=== PATIENT | female | born 2000 | race Caucasian/White ===

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

== ENCOUNTER 2020-01-19 02:58 | Emergency (ER) | payer OTHER, SELFPAY ==
--- NOTE | ~2020-01-19 | CT_ITS ---
EXAMINATION: CT abdomen pelvis wo con DATE: 01/19/2020 04:08 INDICATION: Flank pain TECHNIQUE: Computed tomography (CT) of the abdomen and pelvis was performed without intravenous contr ast. The dose-length product was 252.41 mGy-cm. Automated exposure control and iterative reconstructi on technique were employed. COMPARISON: CT dated 03/21/2019 FINDINGS: Lung bases unremarkable. No significant pleural or pericardial effusion. Liver, spleen, pancreas, adrenal glands are unremarkable. There are small nonobstructing bilateral re nal stones measuring 2 mm or less. No definite ureteral stone or hydronephrosis. No lymphadenopathy. Gallbladder is present. No abnormal pelvic masses or fluid collections. Trace free fluid in the pelvi s, likely physiologic. Nonobstructive bowel gas pattern. No lymphadenopathy. IMPRESSION: 1. Nonobstructing bilateral nephrolithiasis. Reviewed, dictated and finalized at location A.
[2020-01-19 03:02] VITALS: BP 116/71; PULSE 102; RESP 18; TEMP 36.4; O2SAT 100
--- NOTE | 2020-01-19 03:37 | ED.ABDPAIN ---
HPI - Abdominal Pain General Chief Complaint: Urogenital-Female Stated Complaint: flank pain Time Seen by Provider: 01/19/20 03:01 History of Present Illness HPI narrative: Left low back/flank pain for about 2 days. Moderate intesity. She has had similar pain in the past with multiple kidney stone. She has had associated nausea. No dysuria, hematuria, fever. Related Data Allergies Allergy/AdvReac Type Severity Reaction Status Date / Time No Known Allergies Allergy Unverified 01/28/19 21:41 Review of Systems Review of Systems: All systems reviewed & are unremarkable except as noted in HPI and below PMFSH Past Medical History Medical History Ovarian cyst Social History Social History Smoking status: Never smoker Gender identity (if verbalized by the patient): Female Exam Const: General: healthy appearing, no acute distress and alert Orientation/consciousness: patient oriented x3 HENMT: Head: normal to inspection Neck: Neck: normal visual inspection and no lymphadenopathy Chest: Chest palpation & inspection: no tenderness Resp: Effort & Inspection: normal respiratory effort Auscultation: clear to auscultation bilaterally, no rales, no rhonchi and no wheezes Cardio: Jugular venous distension: no JVD Rate: regular rate Rhythm: regular rhythm Heart sounds: no murmurs GI: Inspection: non-distended GI Palp: Yes Soft to palpation and No Tenderness to palpation present (GI) Skin: General skin exam: normal color Neuro: General: patient oriented x3 and moves all extremities Speech: normal speech Extrem: General: no edema Psych: Appearance: well kempt Affect: normal affect Course Vital Signs Vital signs: Vital Signs Temperature 36.4 C L 01/19/20 03:02 Pulse Rate 102 H 01/19/20 03:02 Respiratory Rate 18 01/19/20 03:02 Blood Pressure 116/71 01/19/20 03:02 Pulse Oximetry 100 01/19/20 03:02 Temperature 36.7 C 01/19/20 05:43 Pulse Rate 85 01/19/20 05:43 Respiratory Rate 16 01/19/20 05:43 Blood Pressure 114/65 01/19/20 05:43 Pulse Oximetry 100 09/12/20 05:43 MDM - Abdominal Pain MDM Narrative Medical decision making narrative: No obstructing stone. UA concerning for possible infection. Medical Records Attestation: I reviewed the patient's medical records. Lab Data Attestation: I reviewed the patient's lab results. Result diagrams: 01/19/20 03:54 01/19/20 03:54 Labs: Lab Results 01/19/20 01/19/20 01/19/20 Range/Units 03:54 03:54 03:54 WBC 4.8 (4.5-10.0) K/mm3 RBC 4.23 (4.2-5.4) M/mm3 Hgb 13.4 (12.0-15.0) g/dL Hct 39.3 (37.0-47.0) % MCV 92.9 (80-100) fl MCH 31.7 (26-34) pg MCHC 34.1 (32-36) g/dl RDW 11.9 (11.5-14.5) % Plt Count 208 (150-375) k/mm3 MPV 11.4 H (7.4-10.4) fl Immature Gran % (Auto) 0.2 (0-0.5) % Neut % (Auto) 37.4 L (45.5-73.1) % Lymph % (Auto) 49.9 H (18.3-44.2) % [place] % (Auto) 10.4 H (2.6-8.5) % Eos % (Auto) 1.5 (0-4.4) % Baso % (Auto) 0.6 (0.2-1.2) % Lymph # (Auto) 2.39 (0.9-3.2) K/mm3 [place] # (Auto) 0.5 (0.1-0.6) K/mm3 Eos # (Auto) 0.1 (0-0.3) K/mm3 Baso # (Auto) 0.0 (0.0-0.1) K/mm3 Abs Immat Gran (auto) 0.01 (0.00-0.031) K/mm3 Absolute Neuts (auto) 1.8 (1.3-6.7) K/mm3 Absolute Nucleated RBC 0.0 (0.0-0.012) K/mm3 Nucleated RBC % 0.0 (0.0-0.2) % Sodium 138 (134-143) mmol/L Potassium 3.8 (3.4-5.0) mmol/L Chloride 104 (98-107) mmol/L Carbon Dioxide 25 (22-30) mmol/L Anion Gap 9 (8-16) mmol/L BUN 10 (8-21) mg/dL Creatinine 0.60 L (0.7-1.0) mg/dL Estim Creat Clear Calc Not Reportable Estimated GFR > 60 (59 - ) Glucose 107 H (65-105) mg/dL Calcium 9.8 (8.9-10.7) mg/dL Urine Color Yellow (Yellow) Urine Appearance Cloudy
[2020-01-19 04:09] LABS: Basophils Percent Auto 0.6 % (0.2-1.2); Eosinophils Absolute Auto 0.1 K/mm3 (0-0.3); Eosinophils Percent Auto 1.5 % (0-4.4); Hematocrit 39.3 % (37.0-47.0); Hemoglobin 13.4 g/dL (12.0-15.0); Immature Granulocyte Absolute 0.01 K/mm3 (0.00-0.031); Immature Granulocyte Percent A 0.2 % (0-0.5); Lymphocytes Absolute Auto 2.39 K/mm3 (0.9-3.2); Lymphocytes Percent Auto 49.9 % (18.3-44.2); Mean Corpuscular HGB Conc 34.1 g/dl (32-36); Mean Corpuscular Hemoglobin 31.7 pg (26-34); Mean Corpuscular Volume 92.9 fl (80-100); Mean Platelet Volume 11.4 fl (7.4-10.4); Monocytes Absolute Auto 0.5 K/mm3 (0.1-0.6); Monocytes Percent Auto 10.4 % (2.6-8.5); Neutrophils Absolute Auto 1.8 K/mm3 (1.3-6.7); Neutrophils Percent Auto 37.4 % (45.5-73.1); Platelet Count Result 208 k/mm3 (150-375); Red Blood Count 4.23 M/mm3 (4.2-5.4); Red Cell Distribution Width 11.9 % (11.5-14.5); White Blood Count 4.8 K/mm3 (4.5-10.0)
[2020-01-19 04:22] LABS: Add Urine Microscopic? YES; Appearance Urine Cloudy (Clear); Bacteria Urine Trace /hpf; Bilirubin Urine Negative (Negative); Blood Urine 1+ (Negative); Color Urine Yellow (Yellow); Glucose Urine UA Negative (Negative); Ketones Urine Negative (Negative); Leukocyte Esterase Ur 3+ LEU/UL (Negative); Mucus Urine Few /lpf; Nitrate Urine Negative (Negative); Protein Urine Negative (Negative); Specific Grav Ur 1.017 (1.001-1.035); Squamous Epithelial Cell Urine Many /hpf (Few); Urobilinogen Urine Negative mg/dL (<2.0); WBC Urine 51-75 /hpf
[2020-01-19] MEDS: SODIUM CHLORIDE 0.9% IV 1,000 ML 999 ML IV CONT (04:25)
[2020-01-19] MEDS: TAMSULOSIN HCL 0.4 MG CAPSULE PO (04:25)
[2020-01-19] MEDS: KETOROLAC 30 MG/ML VIAL (*BKC) IV PUSH (04:25)
[2020-01-19 04:50] LABS: Anion Gap 9 mmol/L (8-16); Blood Urea Nitrogen 10 mg/dL (8-21); Calcium 9.8 mg/dL (8.9-10.7); Carbon Dioxide 25 mmol/L (22-30); Chloride 104 mmol/L (98-107); Estimated Glomerular Filt Rate > 60; Glucose 107 mg/dL (65-105); Potassium 3.8 mmol/L (3.4-5.0); Sodium 138 mmol/L (134-143)
[2020-01-19 05:05] VITALS: BP 118/64; PULSE 89; RESP 16; O2SAT 100
[2020-01-19] MEDS: NITROFURANTOIN MONOHYD MACROCR 100 MG CAP PO (05:29)
[2020-01-19] MEDS: CYCLOBENZAPRINE HCL 10 MG TABLET PO (05:29)
[2020-01-19 05:43] VITALS: BP 114/65; PULSE 85; RESP 16; TEMP 36.7; O2SAT 100
== END 2020-01-19 05:44 | disposition home or self-care (01) ==
PROVIDERS: Emergency Provider Emergency Medicine
DX: N39.0 Urinary tract infection, site not specified (principal)
CPT/HCPCS: 36415; 74176; 80048; 81001; 81025; 85025; 87077; 87086; 87088; 96361; 96374; 99284; A9270; J1885; J7030

== ENCOUNTER 2020-06-17 19:46 | Emergency (ER) | payer OTHER, SELFPAY ==
--- NOTE | ~2020-06-17 | XR_ITS ---
EXAMINATION: XR hand LT min 3V DATE: 06/17/2020 20:06 INDICATION: Pain and swelling at the left second metacarpal post injury TECHNIQUE: Posteroanterior, oblique and lateral views of the left hand were obtained. COMPARISON: None. FINDINGS: Alignment is normal. No fracture. Joint spaces are normal. Soft tissues are unremarkable. IMPRESSION: 1. Negative left hand radiographs. Reviewed, dictated and finalized at location A. RER
[2020-06-17 19:48] VITALS: BP 135/63; PULSE 100; RESP 20; TEMP 36; O2SAT 100
--- NOTE | 2020-06-17 20:52 | ED.GENADULT ---
HPI - General Adult General Chief complaint: Extremity Injury, Upper Stated complaint: Hit left hand on door knob Time Seen by Provider: 06/17/20 19:56 Source: patient Mode of arrival: ambulatory Limitations: no limitations History of Present Illness HPI narrative: Patient presents for evaluation of her right hand after hitting it on the doorknob while playing with her dog prior to arrival. Patient reports pain to the dorsal aspect of the hand that shoots to the wrist. Patient denies loss of strength. Patient denies any other injuries. Related Data Home Medications Medication Instructions Recorded Confirmed buspirone mg 06/17/20 pantoprazole PO 06/17/20 sertraline mg 06/17/20 Allergies Allergy/AdvReac Type Severity Reaction Status Date / Time No Known Allergies Allergy Verified 06/17/20 19:52 Review of Systems Review of Systems: Narrative: CONSTITUTIONAL: Denies fever, chills, or sweats. EYES: Denies visual changes, redness, or discharge. ENT: Denies rhinorrhea, congestion, sore throat, or otalgia. CARDIOVASCULAR: Denies chest pain, palpitations, or edema. RESPIRATORY: Denies cough or dyspnea. GASTROINTESTINAL: Denies abdominal pain, nausea, vomiting, or diarrhea. GENITOURINARY: Denies dysuria or hematuria. SKIN: Denies rash or itching. MUSCULOSKELETAL: Reports left hand pain denies back pain, joint pain, or myalgia. NEUROLOGIC: Denies headache, numbness, dizziness, or weakness. PSYCHIATRIC: Denies anxiety or depression. PMFSH Past Medical History Medical History (Updated 06/17/20 @ 20:40 by Alex Chowdhury PA-C) Ovarian cyst Social History Social History Smoking status: Never smoker Gender identity (if verbalized by the patient): Female Exam Narrative: Exam Narrative: GENERAL: Well-appearing, well-nourished, and in no acute distress. HEAD: Normocephalic, atraumatic. EYES: PERRLA and EOMI. NECK: Supple. No adenopathy or masses. No carotid bruits or JVD CHEST: No respiratory distress. No audible wheezing EXTREMITIES: See left hand. Normal range of motion. Sensation intact. No deformities. SKIN: Abrasion to the dorsal aspect of left hand. Cap refill intact. Warm, dry, no rash. NEURO: No focal deficits. Alert and oriented x3. PSYCH: Normal mood and affect. Course Vital Signs Vital signs: Vital Signs Temperature 96.8 F L 06/17/20 19:48 Pulse Rate 100 06/17/20 19:48 Respiratory Rate 06/17/20 19:48 Blood Pressure 135/63 06/17/20 19:48 Pulse Oximetry 100 06/17/20 19:48 Temperature 96.8 F L 06/17/20 19:48 Pulse Rate 100 06/17/20 19:48 Respiratory Rate 06/17/20 19:48 Blood Pressure 135/63 06/17/20 19:48 Pulse Oximetry 100 06/17/20 19:48 Medical Decision Making Vital Signs Vital Signs: Vital Signs Temperature 96.8 F L 06/17/20 19:48 Pulse Rate 100 06/17/20 19:48 Respiratory Rate 06/17/20 19:48 Blood Pressure 135/63 06/17/20 19:48 Pulse Oximetry 100 06/17/20 19:48 Temperature 96.8 F L 06/17/20 19:48 Pulse Rate 100 06/17/20 19:48 Respiratory Rate 06/17/20 19:48 Blood Pressure 135/63 06/17/20 19:48 Pulse Oximetry 100 06/17/20 19:48 Imaging Data Radiologist's impression: ITS Impressions Hand X-Ray 06/17/20 20:16 IMPRESSION: 1. Negative left hand radiographs. Discharge Plan Discharge Clinical Impression: Contusion of hand Qualifiers: Encounter type: initial encounter Laterality: left Qualified Code(s): S60.222A - Contusion of left hand, initial encounter Patient Disposition: Home, Self-Care Condition: Stable Instructions: Antibiotic Form, Contusion in Adults (ED) Additional Instructions: Rest, elevate above heart level. Wear CEE wrap for support and compression. Use crutches to assist with ambulation and avoid weight bearing. Apply cool compress to area of discomfort to decrease swelling. Follow up with PC
== END 2020-06-17 21:13 | disposition home or self-care (01) ==
PROVIDERS: Emergency Provider Emergency Medicine
DX: S60.222A Contusion of left hand, initial encounter (principal); W22.8XXA Striking against or struck by other objects, initial encounter
CPT/HCPCS: 73130; 99283

== ENCOUNTER 2020-08-26 00:20 | Emergency (ER) | payer OTHER, SELFPAY ==
--- NOTE | ~2020-08-26 | CT_ITS ---
EXAMINATION: CT abdomen pelvis wo con DATE: 08/26/2020 03:08 INDICATION: Right flank pain TECHNIQUE: Computed tomography (CT) of the abdomen and pelvis was performed without intravenous contr ast. Automated exposure control and iterative reconstruction technique were employed. Exam dose: 399 .28 mGy-cm total exam DLP. COMPARISON: 01/19/2020 CT abdomen pelvis FINDINGS: The lung bases are clear. Normal heart size. No pericardial or pleural effusion. The liver, gallbladder, spleen, pancreas, and adrenal glands are unremarkable. No bile duct or pancre atic duct dilatation. There is a punctate nonobstructing left renal calculus. There are at least 7 scattered punctate nonob structing right renal calculi. No ureteral or urinary bladder calculus is detected. No hydroureteronephrosis. Normal caliber of the abdominal aorta. No intraperitoneal or retroperitoneal or pelvic mass lesion or adenopathy or ascites. The uterus, adnexal areas and urinary bladder are unremarkable. Normal appendix. No bowel obstruction, bowel wall thickening, pneumatosis or intraperitoneal free air . Included skeletal structures are unremarkable. IMPRESSION: Bilateral nonobstructive nephrolithiasis Reviewed, dictated and finalized at [facility]. Reviewed, dictated and finalized at location A.
--- NOTE | ~2020-08-26 | XR_ITS ---
XR abdomen/kub 1V DATE: 08/26/2020 03:15 INDICATION: Right flank pain. History of urinary tract infection and kidney stones TECHNIQUE: AP projection, 2 views COMPARISON: 08/26/2020 CT abdomen pelvis FINDINGS: The punctate bilateral renal calculi noted on 08/26/[address] abdomen pelvis exami nation are radiographically occult due to their small size. The psoas shadows are intact. No visceromegaly is evident. There is no evidence of bowel obstruction. Normal heart size. The lung bases are clear. Transitional fifth lumbar vertebra with sacralization and pseudoarthrosis on the right. IMPRESSION: The punctate bilateral renal calculi documented on 08/26/2020 CT abdomen pelvis examinatio n are radiographically occult Transitional fifth lumbar vertebra with sacralization pseudoarthrosis on the right Reviewed, dictated and finalized at [facility]. Reviewed, dictated and finalized at location A. IMPRESSION: The punctate bilateral renal calculi documented on 08/26/2020 CT abd omen pelvis examination are radiographically occult Transitional fifth lumbar vertebra with sacralization pseudoarthrosis on the ri ght
[2020-08-26 00:26] VITALS: BP 126/74; PULSE 106; RESP 16; TEMP 36.9; O2SAT 100
[2020-08-26 01:21] LABS: Add Urine Microscopic? YES; Appearance Urine Cloudy (Clear); Bacteria Urine Trace /hpf; Bilirubin Urine Negative (Negative); Blood Urine 3+ (Negative); Calcium Oxalate Crystals Urine Present /hpf; Color Urine Amber (Yellow); Glucose Urine UA Negative (Negative); Ketones Urine Negative (Negative); Leukocyte Esterase Ur 2+ LEU/UL (Negative); Mucus Urine Heavy /lpf; Nitrate Urine Negative (Negative); Protein Urine 2+ mg/dL (Negative); RBC Urine >75 /hpf (0-2); Specific Grav Ur 1.023 (1.001-1.035); Squamous Epithelial Cell Urine Many /hpf (Few); Urobilinogen Urine Negative mg/dL (<2.0); WBC Urine 51-75 /hpf
[2020-08-26 02:28] VITALS: BP 130/79; PULSE 118; RESP 18; TEMP 36.9; O2SAT 100
--- NOTE | 2020-08-26 02:46 | ED.ABDPAIN ---
HPI - Abdominal Pain General Chief Complaint: Abdominal Pain Stated Complaint: right side pain Time Seen by Provider: 08/26/20 02:23 Source: patient Mode of arrival: ambulatory Limitations: no limitations History of Present Illness HPI narrative: This is a 20 year old female with history of kidney stones who presents for evaluation of right flank pain. She reports having intermittent pain x 2 days. She was evaluated in an [facility] , and she was diagnosed with a UTI. She states they performed labs and urine. She came to ER to assess if she has a kidney stone. She has not taken anything for her pain today because she got her covid vaccine today. She reports nausea but denies vomiting or fever. Pain is nonradiating. She denies hematuria. Her pain is 8/10. Related Data Home Medications Medication Instructions Recorded Confirmed buspirone mg 06/17/20 pantoprazole PO 06/17/20 sertraline mg 06/17/20 Allergies Allergy/AdvReac Type Severity Reaction Status Date / Time No Known Allergies Allergy Verified 08/26/20 00:21 Review of Systems Review of Systems: All systems reviewed & are unremarkable except as noted in HPI and below PMFSH Past Medical History Medical History (Updated 08/26/20 @ 04:16 by Marbella Howard MD) Kidney stone Ovarian cyst Social History Social History Smoking status: Never smoker Gender identity (if verbalized by the patient): Female Exam Const: General: no acute distress and alert Orientation/consciousness: patient oriented x3 Eyes: EOM: EOMs intact bilaterally Resp: Effort & Inspection: normal respiratory effort and no retractions Auscultation: clear to auscultation bilaterally Cardio: Rate: regular rate Rhythm: regular rhythm Heart sounds: no murmurs GI: GI Palp: Yes Soft to palpation, Yes Tenderness to palpation present (GI) (RUQ) and No Guarding due to palpation present (GI) Auscultation: normal bowel sounds : General: Yes CVA tenderness on the right Skin: General skin exam: normal color Rashes: no rashes Neuro: General: patient oriented x3, moves all extremities and CN's II-XI intact bilaterally Course Reevaluation(s) Reevaluation #1: I reviewed with patient CT showing bilateral nephrolithiasis. she states she was not given dose of antibiotics in previous ER so I will give her dose here. She understands she will be discharge with antibiotics for UTI. Date: 08/26/20 Time: 04:11 Vital Signs Vital signs: Vital Signs Temperature 98.4 F 08/26/20 00:26 Pulse Rate 106 H 08/26/20 00:26 Respiratory Rate 16 08/26/20 00:26 Blood Pressure 126/74 08/26/20 00:26 Pulse Oximetry 100 08/26/20 00:26 Temperature 98.4 F 08/26/20 02:28 Pulse Rate 118 H 08/26/20 04:16 Respiratory Rate 18 08/26/20 04:16 Blood Pressure 123/69 08/26/20 04:16 Pulse Oximetry 100 08/26/20 04:16 MDM - Abdominal Pain Lab Data Attestation: I reviewed the patient's lab results. Result diagrams: 08/26/20 02:48 08/26/20 02:48 Labs: Lab Results 08/26/20 08/26/20 08/26/20 Range/Units 00:39 02:48 02:48 WBC 6.3 (4.5-10.0) K/mm3 RBC 4.09 L (4.2-5.4) M/mm3 Hgb 11.4 L (12.0-15.0) g/dL Hct 35.7 L (37.0-47.0) % MCV 87.3 (80-100) fl MCH 27.9 (26-34) pg MCHC 31.9 L (32-36) g/dl RDW 13.6 (11.5-14.5) % Plt Count 217 (150-375) k/mm3 MPV 11.1 H (7.4-10.4) fl Immature Gran % (Auto) 0.2 (0-0.5) % Neut % (Auto) 75.7 H (45.5-73.1) % Lymph % (Auto) 16.9 L (18.3-44.2) % [place] % (Auto) 6.4 (2.6-8.5) % Eos % (Auto) 0.5 (0-4.4) % Baso % (Auto) 0.3 (0.2-1.2) % Lymph # (Auto) 1.06 (0.9-3.2) K/mm3 [place] # (Auto) 0.4 (0.1-0.6) K/mm3 Eos # (Auto) 0.0 (0-0.3) K/mm3 Baso # (Auto) 0.0 (0.0-0.1) K/mm3 Abs Immat Gran (auto) 0.01 (0.00-0.031) K/mm3 Absolute Neuts (auto) 4.7 (1.3-6
[2020-08-26 02:58] LABS: Basophils Percent Auto 0.3 % (0.2-1.2); Eosinophils Percent Auto 0.5 % (0-4.4); Hematocrit 35.7 % (37.0-47.0); Hemoglobin 11.4 g/dL (12.0-15.0); Immature Granulocyte Absolute 0.01 K/mm3 (0.00-0.031); Immature Granulocyte Percent A 0.2 % (0-0.5); Lymphocytes Absolute Auto 1.06 K/mm3 (0.9-3.2); Lymphocytes Percent Auto 16.9 % (18.3-44.2); Mean Corpuscular HGB Conc 31.9 g/dl (32-36); Mean Corpuscular Hemoglobin 27.9 pg (26-34); Mean Corpuscular Volume 87.3 fl (80-100); Mean Platelet Volume 11.1 fl (7.4-10.4); Monocytes Absolute Auto 0.4 K/mm3 (0.1-0.6); Monocytes Percent Auto 6.4 % (2.6-8.5); Neutrophils Absolute Auto 4.7 K/mm3 (1.3-6.7); Neutrophils Percent Auto 75.7 % (45.5-73.1); Platelet Count Result 217 k/mm3 (150-375); Red Blood Count 4.09 M/mm3 (4.2-5.4); Red Cell Distribution Width 13.6 % (11.5-14.5); White Blood Count 6.3 K/mm3 (4.5-10.0)
[2020-08-26 03:05] LABS: Alanine Aminotransferase 12 U/L (4-35); Albumin Level 4.3 g/dL (3.5-5.1); Alkaline Phosphatase 81 U/L (38-126); Anion Gap 7 mmol/L (8-16); Aspartate Amino Transferase 23 U/L (14-36); Bilirubin,Total 0.3 mg/dL (0.2-1.3); Blood Urea Nitrogen 12 mg/dL (7-17); Calcium 9.8 mg/dL (8.4-10.2); Carbon Dioxide 26 mmol/L (22-30); Chloride 108 mmol/L (98-107); Estimated CRCL calculation 82 ml/min; Estimated Glomerular Filt Rate > 60; Glucose 102 mg/dL (65-105); Lipase 62 U/L (23-300); Potassium 3.6 mmol/L (3.4-5.0); Sodium 141 mmol/L (137-145)
--- NOTE | 2020-08-26 03:06 | PC.NURSE ---
pt in radiology
[2020-08-26] MEDS: ONDANSETRON INJ 4 MG/2 ML VIAL IV PUSH (03:45)
[2020-08-26] MEDS: SODIUM CHLORIDE 0.9% IV 1,000 ML 999 ML IV CONT (03:47)
[2020-08-26 04:16] VITALS: BP 123/69; PULSE 118; RESP 18; O2SAT 100
== END 2020-08-26 04:52 | disposition home or self-care (01) ==
PROVIDERS: Emergency Provider General Practice
DX: N20.0 Calculus of kidney (principal); N39.0 Urinary tract infection, site not specified
CPT/HCPCS: 36415; 74018; 74176; 80053; 81001; 81025; 83690; 85025; 87077; 87086; 87088; 96361; 96365; 96367; 96375; 99284; J0131; J0696; J2405; J7030

== ENCOUNTER 2020-11-03 17:13 | Emergency (ER) | payer OTHER, SELFPAY ==
--- NOTE | ~2020-11-03 | XR_ITS ---
EXAMINATION: XR abdomen/kub 1V EXAM DATE: 11/03/2020 18:51 INDICATION: Right flank pain for a few hours. TECHNIQUE: Frontal projection of the upper abdomen, frontal projection lower abdomen/pelvis for inter pretation. Comparison is made to prior examination from 08/26/2020. FINDINGS: Several of the punctate right calyceal stones may be identified, indicated. Nonobstructive bowel gas pattern. Bones are unremarkable. IMPRESSION: 1. Punctate right nephrolithiasis. Reviewed, dictated and finalized at location A.
--- NOTE | ~2020-11-03 | CT_ITS ---
EXAMINATION: CT abdomen pelvis wo con EXAM DATE: 11/03/2020 18:44 INDICATION: Right flank pain, history kidney stones. Nausea and vomiting. TECHNIQUE: Spiral CT of the abdomen and pelvis was performed without contrast. Axial, coronal and sag ittal images were reviewed. The dose-length product (DLP) for this examination was 177.21 mGy-cm. T he exposure was tailored according to patient size (auto mA exposure control), and iterative reconstr uction (ASIR) was used as additional dose reduction technique. Comparison is made to prior examinatio n from 08/26/2020. FINDINGS: There are 6 punctate right calyceal stones. Mild right hydroureteronephrosis, but no ureter al stones are identified. The uterus is unremarkable. The bladder is unremarkable. The liver, spl een, adrenal glands and pancreas are unremarkable. Gallbladder is unremarkable. No biliary obstruct ion. There is no retroperitoneal or pelvic lymphadenopathy. The appendix is normal. The stomach and small bowel are unremarkable. There is expected amount of c olonic stool. No free intraperitoneal gas. The heart is normal in size. There are no pericardial or pleural effusions. The lung bases are unremarkable. There are no osteoblastic or osteolytic les ions identified. IMPRESSION: Punctate right calyceal stones and mild hydroureteronephrosis without obstructing stone i dentified, most consistent with recently passed ureteral stone. Correlated with urinalysis to exclude upper urinary tract infection. Reviewed, dictated and finalized at location A. IMPRESSION: Punctate right calyceal stones and mild hydroureteronephrosis witho ut obstructing stone identified, most consistent with recently passed ureteral stone. Correlated with urinalysis to exclude upper urinary tract infection.
[2020-11-03 17:23] VITALS: BP 131/67; PULSE 96; RESP 14; TEMP 36.9; O2SAT 98
[2020-11-03 17:39] LABS: Basophils Percent Auto 0.7 % (0.2-1.2); Eosinophils Absolute Auto 0.1 K/mm3 (0-0.3); Eosinophils Percent Auto 1.1 % (0-4.4); Hematocrit 37.9 % (37.0-47.0); Hemoglobin 11.8 g/dL (12.0-15.0); Immature Granulocyte Absolute 0.01 K/mm3 (0.00-0.031); Immature Granulocyte Percent A 0.2 % (0-0.5); Lymphocytes Absolute Auto 1.91 K/mm3 (0.9-3.2); Lymphocytes Percent Auto 41.7 % (18.3-44.2); Mean Corpuscular HGB Conc 31.1 g/dl (32-36); Mean Corpuscular Hemoglobin 27.3 pg (26-34); Mean Corpuscular Volume 87.5 fl (80-100); Mean Platelet Volume 11.5 fl (7.4-10.4); Monocytes Absolute Auto 0.4 K/mm3 (0.1-0.6); Monocytes Percent Auto 9.4 % (2.6-8.5); Neutrophils Absolute Auto 2.2 K/mm3 (1.3-6.7); Neutrophils Percent Auto 46.9 % (45.5-73.1); Platelet Count Result 243 k/mm3 (150-375); Red Blood Count 4.33 M/mm3 (4.2-5.4); Red Cell Distribution Width 15.1 % (11.5-14.5); White Blood Count 4.6 K/mm3 (4.5-10.0)
[2020-11-03 17:46] LABS: Anion Gap 10 mmol/L (8-16); Blood Urea Nitrogen 9 mg/dL (7-17); Calcium 9.8 mg/dL (8.4-10.2); Carbon Dioxide 24 mmol/L (22-30); Chloride 108 mmol/L (98-107); Estimated CRCL calculation 91 ml/min; Estimated Glomerular Filt Rate > 60; Glucose 113 mg/dL (65-105); Potassium 3.7 mmol/L (3.4-5.0); Sodium 142 mmol/L (137-145)
[2020-11-03 17:53] LABS: Add Urine Microscopic? YES; Appearance Urine Cloudy (Clear); Bacteria Urine Trace /hpf; Bilirubin Urine Negative (Negative); Blood Urine 1+ (Negative); Calcium Oxalate Crystals Urine Present /hpf; Color Urine Yellow (Yellow); Glucose Urine UA Negative (Negative); Ketones Urine Trace mg/dL (Negative); Leukocyte Esterase Ur 2+ LEU/UL (Negative); Mucus Urine Few /lpf; Nitrate Urine Negative (Negative); Protein Urine 1+ mg/dL (Negative); Specific Grav Ur 1.029 (1.001-1.035); Squamous Epithelial Cell Urine Many /hpf (Few)
--- NOTE | 2020-11-03 18:21 | ED.BACK ---
HPI - Back Pain/Injury General Chief Complaint: Back Pain/Injury Stated Complaint: Possible kidney stone Time Seen by Provider: 11/03/20 18:03 Source: patient and RN notes reviewed Mode of arrival: ambulatory Limitations: no limitations History of Present Illness HPI Narrative: This is a 20 year old female who presents for evaluation right lower back pain. She states her pain started 2 hours ago. PAin has been constant but it does intermittent worsen. She also has associated nausea and vomiting. She took 1200 mg Ibuprofen for your pain without relief. She also reports some mild discomfort with urination but she denies hematuria. She denies fever but she reports chills. This pain is similar to previous episode of kidney stones. She currently rates her pain 910 . Related Data Home Medications Medication Instructions Recorded Confirmed buspirone mg 06/17/20 pantoprazole PO 06/17/20 sertraline mg 06/17/20 Allergies Allergy/AdvReac Type Severity Reaction Status Date / Time No Known Allergies Allergy Verified 08/26/20 00:21 Review of Systems Review of Systems: All systems reviewed & are unremarkable except as noted in HPI and below PMFSH Past Medical History Medical History Anxiety Kidney stone Ovarian cyst Social History Social History Smoking status: Never smoker Gender identity (if verbalized by the patient): Female Exam Const: General: no acute distress and alert Orientation/consciousness: patient oriented x3 Eyes: EOM: EOMs intact bilaterally Resp: Effort & Inspection: normal respiratory effort and no retractions Auscultation: clear to auscultation bilaterally Cardio: Rate: regular rate Rhythm: regular rhythm Heart sounds: no murmurs GI: GI Palp: Yes Soft to palpation, Yes Tenderness to palpation present (GI) (RLQ), No Guarding due to palpation present (GI) and No Rigid due to palpation Auscultation: normal bowel sounds : General: Yes no CVA tenderness Speculum Exam - Cervix: Cervical os closed Other: no CMT, there is some milky discharge, no adnexal tenderness Back/Spine/Pelvis: Back: no CVA tenderness Skin: General skin exam: normal color Rashes: no rashes Neuro: General: patient oriented x3, moves all extremities and CN's II-XI intact bilaterally Psych: Mental Status: mental status grossly normal Affect: normal affect Course Reevaluation(s) Reevaluation #1: I discussed with patient CT results. Patient has no adnexal tenderness or CMT to suggest ovarian cyst or torsion as cause of pain. She will be treated for UTI and passed stone Date: 11/03/20 Time: 21:07 Vital Signs Vital signs: Vital Signs Temperature 98.5 F 11/03/20 17:23 Pulse Rate 96 11/03/20 17:23 Respiratory Rate 14 11/03/20 17:23 Blood Pressure 131/67 11/03/20 17:23 Pulse Oximetry 98 11/03/20 17:23 Temperature 98.1 F 11/03/20 21:29 Pulse Rate 98 11/03/20 21:29 Respiratory Rate 18 11/03/20 21:29 Blood Pressure 131/75 11/03/20 21:29 Pulse Oximetry 100 11/03/20 21:29 MDM - Back Pain/Injury Lab Data Attestation: I reviewed the patient's lab results. Result diagrams: 11/03/20 17:31 11/03/20 17:31 Labs: Lab Results 11/03/20 11/03/20 11/03/20 Range/Units 17:31 17:31 17:39 WBC 4.6 (4.5-10.0) K/mm3 RBC 4.33 (4.2-5.4) M/mm3 Hgb 11.8 L (12.0-15.0) g/dL Hct 37.9 (37.0-47.0) % MCV 87.5 (80-100) fl MCH 27.3 (26-34) pg MCHC 31.1 L (32-36) g/dl RDW 15.1 H (11.5-14.5) % Plt Count 243 (150-375) k/mm3 MPV 11.5 H (7.4-10.4) fl Immature Gran % (Auto) 0.2 (0-0.5) % Neut % (Auto) 46.9 (45.5-73.1) % Lymph % (Auto) 41.7 (18.3-44.2) % [place] % (Auto) 9.4 H (2.6-8.5) % Eos % (Auto) 1.1 (0-4.4) % Baso % (Auto) 0.7 (0.2-1.2) % Lymph # (Auto) 1.91
[2020-11-03] MEDS: MORPHINE SULFATE (*CRX) 4 MG/ML INJ IV PUSH (18:32)
[2020-11-03] MEDS: PANTOPRAZOLE SODIUM IV 40 MG VIAL IV PUSH (18:32)
[2020-11-03] MEDS: ONDANSETRON INJ 4 MG/2 ML VIAL IV PUSH (18:32)
[2020-11-03] MEDS: LACTATED RINGERS 1,000 ML 999 ML IV CONT (18:33)
[2020-11-03 18:36] VITALS: BP 126/85; PULSE 92; RESP 15; O2SAT 100
--- NOTE | 2020-11-03 18:38 | PC.NURSE ---
Pt to ct scan via stretcher. IV fluids infusing.
--- NOTE | 2020-11-03 19:14 | PC.NURSE ---
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 Pt states she was experiencing nausea and denies emesis, fever, chills, chest pain and sob. States pain was a 10 and is now an 8. Pt alert, stable and in no obvious distress at this time. Call button and personal items within reach. Pt advised to press call button for assistance.
--- NOTE | 2020-11-03 19:38 | PC.NURSE ---
Pt complains of pain rated 8/10 and requests pain meds at this time. EDMD notified and states she will place orders.
--- NOTE | 2020-11-03 19:52 | PC.NURSE ---
Pt resting on cart in its lowest position with call button and personal items within reach. Vitals are stable and pt in no obvious distress at this time. Pt advised to press call button for assistance.
[2020-11-03 20:20] VITALS: BP 125/82; PULSE 91; RESP 18; TEMP 37; O2SAT 100
--- NOTE | 2020-11-03 20:28 | PC.NURSE ---
Pt resting on cart in its lowest position with call button and personal items within reach. Pt states pain medication did no provide any relief. Pt has no complaint of 0therwise. Pt advised to press call button for assistance.
--- NOTE | 2020-11-03 20:35 | PC.NURSE ---
Vitals prior to dilaudid: BP 123/80, hr 116, O2 100% on room air. Pt noted to be alert and oriented x4 and in no obvious distress.
[2020-11-03] MEDS: HYDROmorphone HCL INJ (*CRX) 1 MG/ML SYR 0.5 MG IV PUSH (20:36)
--- NOTE | 2020-11-03 21:26 | PC.NURSE ---
Pt states pain has improved and is now 5/10 at this time. Pt states she feels better. EDMD updated pt on poc and all questions and concerns addressed.
[2020-11-03 21:27] VITALS: BP 131/75; PULSE 98; RESP 20; TEMP 36.7; O2SAT 100
[2020-11-03 21:29] VITALS: BP 131/75; PULSE 98; RESP 18; TEMP 36.7; O2SAT 100
== END 2020-11-03 21:30 | disposition home or self-care (01) ==
PROVIDERS: Emergency Medicine; Emergency Provider General Practice
DX: N20.0 Calculus of kidney (principal); N39.0 Urinary tract infection, site not specified
CPT/HCPCS: 36415; 74018; 74176; 80048; 81001; 81025; 85025; 87070; 87086; 87491; 87591; 87808; 96361; 96365; 96367; 96375; 99284; C9113; J0131; J0696; J1170; J2270; J2405; J7120

== ENCOUNTER 2020-11-04 00:17 | Emergency (ER) | payer OTHER, SELFPAY ==
--- NOTE | 2020-11-04 00:19 | PC.NURSE ---
seen here earlier today. 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 c/o right flank pain no better. dx c kidney stones.
[2020-11-04 00:31] VITALS: BP 138/80; PULSE 117; RESP 18; TEMP 36.5; O2SAT 100
--- NOTE | 2020-11-04 01:12 | ED.ABDPAIN ---
HPI - Abdominal Pain General Chief Complaint: Abdominal Pain Stated Complaint: flank pain Time Seen by Provider: 11/04/20 01:10 Source: patient Mode of arrival: ambulatory Limitations: no limitations History of Present Illness HPI narrative: Patient is a 20-year-old female complaining of right flank pain, 01/16, sharp, nonradiating started today. Patient was seen here tonight and was recently discharged from the emergency room after being diagnosed with a recently passed kidney stone. Labs and CT scan were done. I have reviewed her CT scan of abdomen pelvis, no ureteral stones was seen, mild hydronephrosis indicative of a recently passed stone. Patient was given a prescription for oral antibiotics and pain medication. Patient states that she was not able to fill the prescription because her pharmacy is closed. Related Data Home Medications Medication Instructions Recorded Confirmed buspirone mg 06/17/20 pantoprazole PO 06/17/20 sertraline mg 06/17/20 Allergies Allergy/AdvReac Type Severity Reaction Status Date / Time No Known Allergies Allergy Verified 08/26/20 00:21 Review of Systems Review of Systems: All systems reviewed & are unremarkable except as noted in HPI and below Constitutional: Constitutional: Denies body ache(s), Denies chills, Denies excessive sweating, Denies fatigue, Denies fever(s), Denies headache(s), Denies lethargy, Denies malaise, Denies weakness and Denies weight loss Eyes: Eyes: Denies blurry vision, Denies change in vision and Denies loss of vision ENT: Denies dizziness, Denies ear discharge, Denies headache(s), Denies lip swelling, Denies epistaxis, Denies nasal congestion, Denies neck pain, Denies throat swelling and Denies tongue swelling Cardiovascular: Cardiovascular: Denies chest pain, Denies chest pain at rest, Denies chest pain with activity, Denies diaphoresis, Denies rapid heart rate, Denies edema, Denies irregular heart rhythm, Denies lightheadedness, Denies palpitations, Denies dyspnea and Denies dyspnea on exertion Respiratory: Respiratory: Denies chest congestion, Denies cough, Denies hemoptysis, Denies dyspnea and Denies dyspnea on exertion Gastrointestinal: Gastrointestinal: Denies abdominal pain, Denies melena, Denies hematochezia, Denies diarrhea, Denies nausea, Denies vomiting and Denies hematemesis Musculoskeletal: Musculoskeletal: Denies abnormal gait, Denies deformity, Denies joint swelling, Denies limited range of motion, Denies neck pain and Denies numbness Neurologic: Denies Abnormal speech present, Denies abnormal gait, Denies confusion, Denies dizziness, Denies headache(s), Denies focal weakness, Denies loss of vision, Denies numbness, Denies Other visual disturbances, Denies Sensory deficit (Neuro) and Denies weakness Psychiatric: Psychiatric: Denies confusion, Denies depression, Denies auditory hallucinations, Denies homicidal ideation and Denies suicidal ideation Endocrine: Endocrine: Denies cold intolerance, Denies excessive sweating, Denies fatigue, Denies heat intolerance and Denies palpitations Hematologic/Lymphatic: Hematologic/Lymphatic: Denies easy bleeding and Denies easy bruising Allergic/Immunologic: Allergic/Immunologic: Denies lip swelling, Denies throat swelling and Denies tongue swelling PMFSH Past Medical History Medical History Anxiety Kidney stone Ovarian cyst Social History Social History Smoking status: Never smoker Gender identity (if verbalized by the patient): Female Exam Const: General: cooperative, healthy appearing, comfortable, no acute distress, well developed, alert and awake; No confusion Orientation/consciousness: oriented to person, oriented to place, oriented to time, patient oriented x3 and No confusion Limitations: no limitations HENMT: Head: normal to inspection, normocephalic and atraumatic Ears: hear
[2020-11-04] MEDS: KETOROLAC (*BKC) 60 MG/2 ML VIAL IM (01:46)
[2020-11-04] MEDS: HYDROcodone/acetaminophen (*CRX) 5-325 MG TABLET 1 TAB PO (01:47)
[2020-11-04 02:49] VITALS: BP 122/79; PULSE 84; RESP 183; O2SAT 98
== END 2020-11-04 02:51 | disposition home or self-care (01) ==
PROVIDERS: Emergency Provider Emergency Medicine
DX: N23 Unspecified renal colic (principal); F41.9 Anxiety disorder, unspecified; Z87.442 Personal history of urinary calculi
CPT/HCPCS: 96372; 99283; A9270; J1885

== ENCOUNTER 2020-11-09 13:27 | Emergency (ER) | payer OTHER, SELFPAY ==
[2020-11-09 13:34] VITALS: BP 120/78; PULSE 111; RESP 16; TEMP 36.7; O2SAT 100
[2020-11-09] MEDS: ONDANSETRON HCL ODT 4 MG TABLET PO (13:42)
--- NOTE | 2020-11-09 13:42 | ED.FALL ---
HPI - Fall General Chief Complaint: Head Injury Stated Complaint: head trauma Time Seen by Provider: 11/09/20 13:40 Source: patient and RN notes reviewed Mode of arrival: ambulatory Limitations: no limitations History of Present Illness HPI Narrative: Patient is a 20-year-old female who presents noting that she hit her head last night she threw her head back into the a window striking the posterior head denies any loss of consciousness presents noting aching pain to the posterior head with nausea denies any vomiting other injuries or complaints presents in no distress resting comfortably has not taken anything for her symptoms Related Data Home Medications Medication Instructions Recorded Confirmed buspirone mg 06/17/20 pantoprazole PO 06/17/20 sertraline mg 06/17/20 Allergies Allergy/AdvReac Type Severity Reaction Status Date / Time No Known Allergies Allergy Verified 08/26/20 00:21 Review of Systems Review of Systems: All systems reviewed & are unremarkable except as noted in HPI and below PMFSH Past Medical History Medical History (Updated 11/09/20 @ 13:[address] PA-C) Anxiety Kidney stone Ovarian cyst Surgical History Surgical History (Updated 11/09/20 @ 13:[address] PA-C) History of tonsillectomy Social History Social History Smoking status: Never smoker Gender identity (if verbalized by the patient): Female Exam Narrative: Exam Narrative: GENERAL: Well-appearing, well-nourished, and in no acute distress. HEAD: Normocephalic, atraumatic. EYES: PERRLA and EOMI. ENT: Nares clear, no rhinorrhea or epistaxis. Mucous membranes moist. NECK: Supple. No adenopathy or masses. CHEST: Clear to auscultation. No respiratory distress. No wheezes rales or rhonchi HEART: Regular rate and rhythm. No murmur heard. Normal peripheral pulses. EXTREMITIES: Normal range of motion. No edema. No cervical spine tenderness SKIN: Warm, dry, no rash. NEURO: No focal deficits. Alert and oriented x3. Cranial nerves II through XII grossly intact PSYCH: Normal mood and affect. Course Course Emergency Course: Patient with minor head injury felt appropriate for discharge home managed on an outpatient basis Vital Signs Vital signs: Vital Signs Temperature 98.0 F 11/09/20 13:34 Pulse Rate 111 H 11/09/20 13:34 Respiratory Rate 16 11/09/20 13:34 Blood Pressure 120/78 11/09/20 13:34 Pulse Oximetry 100 11/09/20 13:34 Temperature 98.0 F 11/09/20 13:34 Pulse Rate 111 H 11/09/20 13:34 Respiratory Rate 16 11/09/20 13:34 Blood Pressure 120/78 11/09/20 13:34 Pulse Oximetry 100 11/09/20 13:34 MDM - Fall MDM Narrative Medical decision making narrative: Patient with minor head injury ABCs and vital signs intact and stable felt appropriate for outpatient reevaluation Discharge Plan Discharge Clinical Impression: Closed head injury Patient Disposition: Home, Self-Care Condition: Stable Instructions: Antibiotic Form, Head Injury (ED) Additional Instructions: Follow up with your primary care doctor in 5-7 days for re-evaluation. Go to ER for worsening pain, vision changes, nausea/vomiting, fever/chills, weakness, chest pain, shortness of breath, numbness/tingling, slurred speech, difficulty walking, change in mental status etc. or any other concerns. Take any prescribed medications as directed. Prescriptions: New promethazine 25 mg tablet 25 mg PO QID PRN (Reason: nausea and vomiting) Qty: 7 RF: 0 No Action cefuroxime axetil 500 mg tablet 500 mg PO BID Qty: 14 RF: 0 hydrocodone-acetaminophen 5-325 mg tablet 1 tablet PO Q6H PRN (Reason: pain) Qty: 7 RF: 0 cefuroxime axetil 500 mg tablet 500 mg PO BID Qty: 14 RF: 0 ondansetron HCl [Zofran] 4 mg tablet 4 mg PO Q6H PRN (Reason: nausea and vomiting) Qty: 10 RF: 0 ketorolac 10 mg tablet
== END 2020-11-09 13:56 | disposition home or self-care (01) ==
LOC: ANHED 13:50
PROVIDERS: Emergency Provider Emergency Medicine
DX: S09.90XA Unspecified injury of head, initial encounter (principal); W22.09XA Striking against other stationary object, initial encounter; F41.9 Anxiety disorder, unspecified
CPT/HCPCS: 99283; A9270

== ENCOUNTER 2020-12-04 15:47 | Emergency (ER) | payer OTHER, SELFPAY ==
--- NOTE | 2020-12-04 15:53 | ED.URI ---
HPI - URI/Sore Throat General Chief Complaint: Upper Respiratory Infection Stated Complaint: difficulty swallowing Time Seen by Provider: 12/04/20 15:54 Source: patient and RN notes reviewed Mode of arrival: ambulatory Limitations: no limitations History of Present Illness HPI Narrative: 20-year-old female presents to [facility] with complaints of difficulty swallowing when she woke up this morning. States she was unable to eat, she is able to drink and maintain own secretions. Denies fevers. No chest pain or shortness of breath. History of tonsillectomy and wisdom teeth removal. Denies any other medical or surgical history. MD elicited complaint: sore throat Related Data Home Medications Medication Instructions Recorded Confirmed No Home Medications 12/04/20 12/04/20 Allergies Allergy/AdvReac Type Severity Reaction Status Date / Time No Known Allergies Allergy Verified 08/26/20 00:21 Review of Systems Review of Systems: All systems reviewed & are unremarkable except as noted in HPI and below Constitutional: Constitutional: Reports no additional constitutional complaints, Denies chills and Denies fever(s) Eyes: Eyes: Reports no additional eye complaints ENT: Reports as per HPI, Reports dysphagia, Denies vertigo, Denies dizziness, Denies nasal congestion and Denies sore throat Comments: Denies a sore throat just trouble swallowing solid food Cardiovascular: Cardiovascular: Reports no additional cardiovascular complaints, Denies chest pain and Denies radiating jaw, neck or arm pain Respiratory: Respiratory: Reports no additional respiratory complaints, Denies cough and Denies dyspnea Gastrointestinal: Gastrointestinal: Reports no additional gastrointestinal complaints, Denies abdominal pain, Denies diarrhea, Denies nausea and Denies vomiting Musculoskeletal: Musculoskeletal: Reports no additional musculoskeletal complaints Integumentary/Breasts: Skin/Breast: Reports system reviewed and no additional complaints, except as docu Neurologic: Reports system reviewed and no additional complaints, except as documented Psychiatric: Psychiatric: Reports no additional psychiatric complaints Allergic/Immunologic: Allergic/Immunologic: Reports no additional allergic/immunologic complaints PMFSH Past Medical History Medical History Anxiety Kidney stone Ovarian cyst Surgical History Surgical History (Updated 12/04/20 @ 16:03 by Lindsey Gonzales) History of tonsillectomy [place] teeth removed Social History Social History Smoking status: Never smoker Gender identity (if verbalized by the patient): Female Comments At the time of my signature, I reviewed and agree with the nursing past medical, surgical, social, and family history. There is no relevant family history pertinent to the patient complaint. Exam Const: General: healthy appearing, no acute distress, alert and ill appearing Nutritional Appearance: well nourished Orientation/consciousness: patient oriented x3 Limitations: no limitations HENMT: Head: normal to inspection Ears: hearing grossly normal bilaterally, external ears normal, TM's normal bilaterally and EAC's normal General nose exam: Normal external nose present, Normal nares present, Normal nasal mucous membranes and turbinates present and No nasal discharge present Face and sinus: normal facial exam Mouth: Yes Normal oral and palatal mucosa present Throat: posterior oropharynx normal, uvula midline, posterior oropharynx abnormal, no postnasal drainage, tonsils absent and no uvular edema Eyes: Conjunctivae: conjunctivae normal Pupils: Equal, round and reactive pupils present Neck: Neck: normal visual inspection, no lymphadenopathy and no meningeal signs Thyroid: thyroid normal Lymphatic: no lymphadenopathy noted Chest: Chest palpation & inspection: normal inspection of the chest Resp:
[2020-12-04 15:55] VITALS: BP 118/74; PULSE 88; RESP 18; TEMP 36.7; O2SAT 100
== END 2020-12-04 16:27 | disposition home or self-care (01) ==
PROVIDERS: Emergency Provider Nurse Practitioner
DX: J02.9 Acute pharyngitis, unspecified (principal); R09.89 Other specified symptoms and signs involving the circulatory and respiratory systems
CPT/HCPCS: 87081; 87880; 99213; G0463

== ENCOUNTER 2020-12-12 16:08 | Emergency (ER) | payer OTHER, SELFPAY ==
[2020-12-12 16:40] VITALS: BP 124/76; PULSE 112; RESP 20; TEMP 36.8; O2SAT 100
[2020-12-12 17:09] LABS: Basophils Percent Auto 0.4 % (0.2-1.2); Eosinophils Percent Auto 0.8 % (0-4.4); Hemoglobin 12.3 g/dL (12.0-15.0); Immature Granulocyte Absolute 0.01 K/mm3 (0.00-0.031); Immature Granulocyte Percent A 0.2 % (0-0.5); Lymphocytes Absolute Auto 1.96 K/mm3 (0.9-3.2); Lymphocytes Percent Auto 39.6 % (18.3-44.2); Mean Corpuscular HGB Conc 31.5 g/dl (32-36); Mean Corpuscular Hemoglobin 28.1 pg (26-34); Mean Corpuscular Volume 89.2 fl (80-100); Mean Platelet Volume 10.9 fl (7.4-10.4); Monocytes Absolute Auto 0.4 K/mm3 (0.1-0.6); Monocytes Percent Auto 8.3 % (2.6-8.5); Neutrophils Absolute Auto 2.5 K/mm3 (1.3-6.7); Neutrophils Percent Auto 50.7 % (45.5-73.1); Platelet Count Result 222 k/mm3 (150-375); Red Blood Count 4.37 M/mm3 (4.2-5.4); Red Cell Distribution Width 15.4 % (11.5-14.5)
[2020-12-12 17:13] LABS: Add Urine Microscopic? YES; Appearance Urine Clear (Clear); Bilirubin Urine Negative (Negative); Blood Urine 3+ (Negative); Color Urine Yellow (Yellow); Glucose Urine UA Negative (Negative); Ketones Urine Negative (Negative); Leukocyte Esterase Ur 1+ LEU/UL (Negative); Mucus Urine Rare /lpf; Nitrate Urine Negative (Negative); Protein Urine Negative (Negative); Specific Grav Ur 1.021 (1.001-1.035); Squamous Epithelial Cell Urine Few /hpf (Few); Urobilinogen Urine Negative mg/dL (<2.0)
[2020-12-12 17:20] LABS: Alanine Aminotransferase 27 U/L (4-35); Alkaline Phosphatase 67 U/L (38-126); Anion Gap 7 mmol/L (8-16); Aspartate Amino Transferase 29 U/L (14-36); Bilirubin,Total 0.2 mg/dL (0.2-1.3); Blood Urea Nitrogen 7 mg/dL (7-17); Calcium 9.4 mg/dL (8.4-10.2); Carbon Dioxide 25 mmol/L (22-30); Chloride 104 mmol/L (98-107); Estimated CRCL calculation 103 ml/min; Estimated Glomerular Filt Rate > 60; Glucose 78 mg/dL (65-110); Lipase 50 U/L (23-300); Potassium 3.3 mmol/L (3.4-5.0); Sodium 136 mmol/L (137-145)
--- NOTE | 2020-12-12 18:11 | ED.ABDPAIN ---
HPI - Abdominal Pain General Chief Complaint: Abdominal Pain Stated Complaint: abd pain Time Seen by Provider: 12/12/20 17:33 Source: patient and RN notes reviewed Mode of arrival: ambulatory Limitations: no limitations History of Present Illness HPI narrative: This is a 20 year old female who presents for evaluation of left upper abdominal pain. She has been having constant left upper abdominal pain. She reports her pain is worse with eating. She has nausea but no vomiting. She reports increased frequency in bowel movements but she denies diarrhea and melena. She had 2 bowel movements today. She denies fever, chills, dysuria, cough or shortness of breath. she has not taken anything for her symptoms. Pain 11/15. Related Data Allergies Allergy/AdvReac Type Severity Reaction Status Date / Time No Known Allergies Allergy Verified 12/12/20 17:29 Review of Systems Review of Systems: All systems reviewed & are unremarkable except as noted in HPI and below PMFSH Past Medical History Medical History Anxiety Kidney stone Ovarian cyst Surgical History Surgical History History of tonsillectomy [place] teeth removed Social History Social History Smoking status: Never smoker Gender identity (if verbalized by the patient): Female Exam Const: General: no acute distress and alert Orientation/consciousness: patient oriented x3 Eyes: EOM: EOMs intact bilaterally Resp: Effort & Inspection: normal respiratory effort and no retractions Auscultation: clear to auscultation bilaterally Cardio: Rate: regular rate Rhythm: regular rhythm Heart sounds: no murmurs GI: GI Palp: Yes Soft to palpation, Yes Tenderness to palpation present (GI) (LUQ, epigastric), No Guarding due to palpation present (GI) and No Rigid due to palpation Auscultation: normal bowel sounds Back/Spine/Pelvis: Back: no CVA tenderness Skin: General skin exam: normal color Rashes: no rashes Neuro: General: patient oriented x3, moves all extremities and CN's II-XI intact bilaterally Course Reevaluation(s) Reevaluation #1: PAtient states her pain has resolved after GI cocktail. I have reviewed labs are unremarkable. THs is likely related to GERD, PUD. She will start taking her protonix daily instead of as needed and follow up with PCP. Date: 12/12/20 Time: 19:11 Vital Signs Vital signs: Vital Signs Temperature 98.2 F 12/12/20 16:40 Pulse Rate 112 H 12/12/20 16:40 Respiratory Rate 20 12/12/20 16:40 Blood Pressure 124/76 12/12/20 16:40 Pulse Oximetry 100 12/12/20 16:40 Temperature 98.2 F 12/12/20 16:40 Pulse Rate 90 12/12/20 18:21 Respiratory Rate 20 12/12/20 18:21 Blood Pressure 114/75 12/12/20 18:21 Pulse Oximetry 100 12/12/20 18:21 MDM - Abdominal Pain Medical Records Attestation: I reviewed the patient's medical records. Lab Data Attestation: I reviewed the patient's lab results. Result diagrams: 12/12/20 16:59 12/12/20 16:59 Labs: Lab Results 12/12/20 12/12/20 12/12/20 Range/Units 16:59 16:59 16:59 WBC 5.0 (4.5-10.0) K/mm3 RBC 4.37 (4.2-5.4) M/mm3 Hgb 12.3 (12.0-15.0) g/dL Hct 39.0 (37.0-47.0) % MCV 89.2 (80-100) fl MCH 28.1 (26-34) pg MCHC 31.5 L (32-36) g/dl RDW 15.4 H (11.5-14.5) % Plt Count 222 (150-375) k/mm3 MPV 10.9 H (7.4-10.4) fl Immature Gran % (Auto) 0.2 (0-0.5) % Neut % (Auto) 50.7 (45.5-73.1) % Lymph % (Auto) 39.6 (18.3-44.2) % [place] % (Auto) 8.3 (2.6-8.5) % Eos % (Auto) 0.8 (0-4.4) % Baso % (Auto) 0.4 (0.2-1.2) % Lymph # (Auto) 1.96 (0.9-3.2) K/mm3 [place] # (Auto) 0.4 (0.1-0.6) K/mm3 Eos # (Auto) 0.0 (0-0.3) K/mm3 Baso # (Auto) 0.0 (0.0-0.1) K/mm3 Abs Immat Gran (auto) 0.01 (0.00-0.
[2020-12-12] MEDS: BELLADONNA ALK/PHENOB ELIX 10 ML, MAG HYDROX/ALUMINUM HYD/SIMETH 30 ML, LIDOCAINE HCL 2... PO (18:19)
[2020-12-12 18:21] VITALS: BP 114/75; PULSE 90; RESP 20; O2SAT 100
[2020-12-12] MEDS: ONDANSETRON HCL ODT 4 MG TABLET PO (18:21)
== END 2020-12-12 19:26 | disposition home or self-care (01) ==
PROVIDERS: Emergency Medicine; Emergency Provider General Practice
DX: R10.12 Left upper quadrant pain (principal); K21.9 Gastro-esophageal reflux disease without esophagitis; Z87.442 Personal history of urinary calculi
CPT/HCPCS: 36415; 80053; 81001; 81025; 83690; 85025; 87086; 87088; 99283; A9270

== ENCOUNTER 2021-02-10 13:29 | Emergency (ER) | payer OTHER, SELFPAY ==
--- NOTE | ~2021-02-10 | US_ITS ---
EXAMINATION: US OB <=14 wk fetus w TV DATE: 02/10/2021 15:10 INDICATION: Periumbilical abdominal pain. TECHNIQUE: Real-time transabdominal and transvaginal pelvic ultrasound was performed. COMPARISON: None. FINDINGS: TRANSABDOMINAL ULTRASOUND: The uterus measures 7.6 x 3.3 x 4.6 cm. TRANSVAGINAL ULTRASOUND: There is a cyst in the endometrial complex with mean diameter of 4 mm that m ay be a gestational sac with estimated date of delivery of 5 weeks and 0 days +/- 3 days. No yolk sac or pole is identified. The right ovary measures 2.1 x 1.5 x 2.0 cm. The left ovary measures 1. 8 x 1.2 x 1.3 cm. There is no free fluid in the pelvis. IMPRESSION: 1. Cyst in the endometrial complex that may be a gestational sac with estimated date of delivery of 10/13/2021. Ectopic and spontaneous are not excluded. Serial beta-hCGs are recommend ed. Reviewed, dictated and finalized at location A. IMPRESSION: 1. Cyst in the endometrial complex that may be a gestational sac with estimate d date of delivery of 10/13/2021. Ectopic and spontaneous are not excluded. Serial beta-hCGs are recommended.
[2021-02-10 13:34] VITALS: BP 115/64; PULSE 98; RESP 17; TEMP 36.9; O2SAT 100
[2021-02-10 14:59] LABS: Basophils Percent Auto 0.4 % (0.2-1.2); Eosinophils Percent Auto 0.9 % (0-4.4); Hemoglobin 12.2 g/dL (12.0-15.0); Immature Granulocyte Absolute 0.01 K/mm3 (0.00-0.031); Immature Granulocyte Percent A 0.2 % (0-0.5); Immature Platelet Fraction Pct 9.1 % (0.9-11.2); Lymphocytes Absolute Auto 1.77 K/mm3 (0.9-3.2); Lymphocytes Percent Auto 38.6 % (18.3-44.2); Mean Corpuscular Hemoglobin 30.3 pg (26-34); Mean Corpuscular Volume 91.8 fl (80-100); Mean Platelet Volume 12.4 fl (7.4-10.4); Monocytes Absolute Auto 0.4 K/mm3 (0.1-0.6); Monocytes Percent Auto 9.4 % (2.6-8.5); Neutrophils Absolute Auto 2.3 K/mm3 (1.3-6.7); Neutrophils Percent Auto 50.5 % (45.5-73.1); Platelet Count Result 209 k/mm3 (150-375); Red Blood Count 4.03 M/mm3 (4.2-5.4); White Blood Count 4.6 K/mm3 (4.5-10.0)
[2021-02-10 15:03] LABS: Add Urine Microscopic? YES; Appearance Urine Cloudy (Clear); Bacteria Urine Trace /hpf; Bilirubin Urine Negative (Negative); Blood Urine 1+ (Negative); Color Urine Yellow (Yellow); Glucose Urine UA Negative (Negative); Ketones Urine Negative (Negative); Leukocyte Esterase Ur 3+ LEU/UL (Negative); Mucus Urine Rare /lpf; Nitrate Urine Negative (Negative); Protein Urine Negative (Negative); Specific Grav Ur 1.008 (1.001-1.035); Squamous Epithelial Cell Urine Many /hpf (Few); Urobilinogen Urine Negative mg/dL (<2.0); WBC Urine 31-50 /hpf
[2021-02-10 15:55] LABS: Alanine Aminotransferase 20 U/L (4-35); Albumin Level 4.5 g/dL (3.5-5.1); Alkaline Phosphatase 70 U/L (38-126); Anion Gap 10 mmol/L (8-16); Aspartate Amino Transferase 22 U/L (14-36); Bilirubin,Total 0.2 mg/dL (0.2-1.3); Blood Urea Nitrogen 8 mg/dL (7-17); Calcium 9.7 mg/dL (8.4-10.2); Carbon Dioxide 24 mmol/L (22-30); Chloride 105 mmol/L (98-107); Estimated CRCL calculation 119 ml/min; Estimated Glomerular Filt Rate > 60; Glucose 95 mg/dL (65-110); Lipase 77 U/L (23-300); Potassium 3.7 mmol/L (3.4-5.0); Sodium 139 mmol/L (137-145)
[2021-02-10 16:04] VITALS: BP 110/60; PULSE 85; RESP 16; O2SAT 100
--- NOTE | 2021-02-10 17:34 | ED.GENADULT ---
HPI - General Adult General Chief complaint: DUAL RATE [employer]ER Stated complaint: abdominal pain Time Seen by Provider: 02/10/21 13:57 Source: patient Mode of arrival: ambulatory Limitations: no limitations History of Present Illness HPI narrative: Patient is 20-year-old female presenting with chief complaint of lower abdominal discomfort over the past 4 days. Patient states the discomfort became greater today so she called her UPPER LINING CEMENTER and was instructed to present to emergency department. Patient states that she sees Dr. Dwyer in both also for UPPER LINING CEMENTER care. Patient states she has not yet had ultrasound to determine her JOHNNY. Patient reports nausea but denies any vomiting inability to tolerate p.o. fluids or food. She denies any urinary discomfort, frequency, hematuria, fever, chills, diarrhea or constipation. Related Data Home Medications Medication Instructions Recorded Confirmed vit no.[id number] tablet 02/10/21 [Classic ] vitamin B complex [B tablet 02/10/21 Complex-Vitamin B12] Allergies Allergy/AdvReac Type Severity Reaction Status Date / Time No Known Allergies Allergy Verified 02/10/21 13:47 Review of Systems Review of Systems: CONSTITUTIONAL: Denies fever, chills, or sweats. EYES: Denies visual changes, redness, or discharge. ENT: Denies rhinorrhea, congestion, sore throat, or otalgia. CARDIOVASCULAR: Denies chest pain, palpitations, or edema. RESPIRATORY: Denies cough or dyspnea. GASTROINTESTINAL: Reports abdominal pain, nausea denies diarrhea. GENITOURINARY: Denies dysuria or hematuria. SKIN: Denies rash or itching. MUSCULOSKELETAL: Denies back pain, joint pain, or myalgia. NEUROLOGIC: Denies headache, numbness, dizziness, or weakness. PSYCHIATRIC: Denies anxiety or depression. PMFSH Past Medical History Medical History Anxiety Kidney stone Ovarian cyst Surgical History Surgical History History of tonsillectomy [place] teeth removed Social History Social History Smoking status: Never smoker Gender identity (if verbalized by the patient): Female Exam Narrative: GENERAL: Well-appearing, well-nourished, and in no acute distress. Nontoxic in appearance. HEAD: Normocephalic, atraumatic. EYES: PERRLA and EOMI. ENT: Nares clear, no rhinorrhea or epistaxis. Mucous membranes moist. Oropharynx without tonsillar hypertrophy exudate or other lesions. Bilateral TMs pearly freed nonbulging NECK: Supple. No adenopathy or masses. Intact. CHEST: Clear to auscultation. No respiratory distress. No wheezes rales or rhonchi HEART: Regular rate and rhythm. No murmur heard. Normal peripheral pulses. ABDOMEN: Soft, mild tenderness to palpation over the bladder, nondistended, normal active bowel sounds. EXTREMITIES: Normal range of motion. No edema. SKIN: Warm, dry, no rash. NEURO: No focal deficits. Alert and oriented x3. Ambulates without difficulty. PSYCH: Normal mood and affect. Course Vital Signs Vital signs: Vital Signs Temperature 98.5 F 02/10/21 13:34 Pulse Rate 98 02/10/21 13:34 Respiratory Rate 17 02/10/21 13:34 Blood Pressure 115/64 02/10/21 13:34 Pulse Oximetry 100 02/10/21 13:34 Temperature 98.5 F 02/10/21 13:34 Pulse Rate 85 02/10/21 16:04 Respiratory Rate 16 02/10/21 16:04 Blood Pressure 110/60 02/10/21 16:04 Pulse Oximetry 100 02/10/21 16:04 Medical Decision Making MDM Narrative Medical decision making narrative: Patient shows signs of urinary tract infection. Patient will be treated for urinary tract infection. Ultrasound shows possibly early gestation. Patient instructed to follow-up with her UPPER LINING C[employer]ER for further evaluation and management of her UTI in . Patient instructed return to emergency department for any emergent symptoms. Patient does not have pain to the lower abdom
== END 2021-02-10 16:06 | disposition home or self-care (01) ==
PROVIDERS: Physician Assistant; Emergency Provider Emergency Medicine
DX: O23.11 Infections of bladder in pregnancy, first trimester (principal); Z3A.00 Weeks of gestation of pregnancy not specified
CPT/HCPCS: 36415; 76801; 76817; 80053; 81001; 83690; 84702; 85025; 85055; 87086; 99284

== ENCOUNTER 2021-03-10 10:35 | Emergency (ER) | payer OTHER, SELFPAY ==
--- NOTE | ~2021-03-10 | US_ITS ---
EXAMINATION: US OB <= 14 weeks fetus EXAM DATE: 03/10/2021 12:16 INDICATION: Lower abdominal tenderness . Low abdominal tenderness. 1st trimester. TECHNIQUE: Pelvic obstetrical transabdominal sonogram was performed by a technologist. There are mu ltiple grayscale and Doppler images available for interpretation. There are no earlier studies of th is gestation for comparison. FINDINGS: Uterus measures 8.3 x 6.6 x 5.2 cm. There is intrauterine gestation sac. pole with heart rate confirmed at 185 beats per minute. The 2.2 cm crown-rump length corresponds to estimated gestational age by ultrasound of 8 weeks 6 days, estimated date of confinement 10/14/2021. Yolk sac is identified. There is no sonographic evidence of subchorionic hemorrhage. Not identified . IMPRESSION: Live intrauterine gestation, age by ultrasound 8 weeks 6 days. Reviewed, dictated and finalized at location A.
--- NOTE | ~2021-03-10 | US_ITS ---
EXAMINATION: US abdomen limited EXAM DATE: 03/10/2021 12:17 INDICATION: RUQ pain. TECHNIQUE: Multiple grayscale and Doppler images of the abdomen right upper quadrant were obtained (dena y a technologist who performed the scan) and subsequently reviewed. There is no prior study for royer conti. FINDINGS: The pancreatic head and body are normal in appearance. The pancreatic tail is not visualized. The l iver has normal echogenicity and contour. There are no focal liver lesions identified. There is no evidence of intrahepatic biliary duct dilation. Portal venous flow was seen in the hepatopedal, nor mal direction and has normal Doppler waveform. No right-sided hydronephrosis. Common bile duct measures 4-5 mm, which is normal. The gallbladder wall is normal in thickness, with expected amount of distention. No sonographic evidence of pericholecystic fluid. There is no cholel ithiases. Technologist performing exam reports patient did not demonstrate sonographic Hanna's sign. Please note that this sign is less reliable in patients who have received pain medication. IMPRESSION: 1. Unremarkable abdominal ultrasound exam. Reviewed, dictated and finalized at location A.
[2021-03-10 10:47] VITALS: BP 122/68; PULSE 109; RESP 14; TEMP 36.8; O2SAT 100
[2021-03-10 11:12] LABS: Basophils Percent Auto 0.3 % (0.2-1.2); Eosinophils Percent Auto 0.5 % (0-4.4); Hematocrit 40.7 % (37.0-47.0); Hemoglobin 13.7 g/dL (12.0-15.0); Immature Granulocyte Absolute 0.02 K/mm3 (0.00-0.031); Immature Granulocyte Percent A 0.3 % (0-0.5); Lymphocytes Absolute Auto 1.47 K/mm3 (0.9-3.2); Lymphocytes Percent Auto 23.4 % (18.3-44.2); Mean Corpuscular HGB Conc 33.7 g/dl (32-36); Mean Corpuscular Hemoglobin 31.3 pg (26-34); Mean Corpuscular Volume 92.9 fl (80-100); Mean Platelet Volume 11.4 fl (7.4-10.4); Monocytes Absolute Auto 0.5 K/mm3 (0.1-0.6); Monocytes Percent Auto 7.8 % (2.6-8.5); Neutrophils Absolute Auto 4.3 K/mm3 (1.3-6.7); Neutrophils Percent Auto 67.7 % (45.5-73.1); Platelet Count Result 228 k/mm3 (150-375); Red Blood Count 4.38 M/mm3 (4.2-5.4); Red Cell Distribution Width 13.7 % (11.5-14.5); White Blood Count 6.3 K/mm3 (4.5-10.0)
[2021-03-10 11:21] VITALS: BP 112/62; PULSE 88; RESP 14; TEMP 36.6; O2SAT 100
[2021-03-10 11:22] LABS: Add Urine Microscopic? YES; Appearance Urine Cloudy (Clear); Bacteria Urine Trace /hpf; Bilirubin Urine Negative (Negative); Blood Urine Negative (Negative); Color Urine Yellow (Yellow); Glucose Urine UA Negative (Negative); Ketones Urine Trace mg/dL (Negative); Leukocyte Esterase Ur 2+ LEU/UL (Negative); Mucus Urine Few /lpf; Nitrate Urine Negative (Negative); Protein Urine 1+ mg/dL (Negative); Specific Grav Ur 1.021 (1.001-1.035); Squamous Epithelial Cell Urine Many /hpf (Few); Urobilinogen Urine Negative mg/dL (<2.0)
[2021-03-10 11:27] LABS: Alanine Aminotransferase 14 U/L (4-35); Albumin Level 4.5 g/dL (3.5-5.1); Alkaline Phosphatase 64 U/L (38-126); Anion Gap 8 mmol/L (8-16); Aspartate Amino Transferase 22 U/L (14-36); Bilirubin,Total 0.6 mg/dL (0.2-1.3); Blood Urea Nitrogen 6 mg/dL (7-17); Calcium 10.3 mg/dL (8.4-10.2); Carbon Dioxide 22 mmol/L (22-30); Chloride 107 mmol/L (98-107); Estimated CRCL calculation 140 ml/min; Estimated Glomerular Filt Rate > 60; Glucose 90 mg/dL (65-110); Lipase 72 U/L (23-300); Potassium 4.2 mmol/L (3.4-5.0); Sodium 137 mmol/L (137-145)
--- NOTE | 2021-03-10 11:39 | ED.ABDPAIN ---
HPI - Abdominal Pain General Chief Complaint: Abdominal Pain Stated Complaint: RUQ ABD PAIN Time Seen by Provider: 03/10/21 11:24 Source: patient and RN notes reviewed Mode of arrival: ambulatory Limitations: no limitations History of Present Illness HPI narrative: This is a 20 year old female GA 9 weeks by LMP who presents for evaluation of right upper abdominal pain. She developed pain 1 week ago, and she reports her pain waxes and wanes. She has not taken anything for pain. She thinks her pain may be worse with eating. Today her pain was so bad she had an episode of nausea and vomiting. Her pain does radiate to her back occasionally. She denies urinary complaints, and she denies vaginal bleeding, spotting or lower abdominal cramping. Her LMP 01/09/21 . Pain rates currently 6/10. Related Data Home Medications Medication Instructions Recorded Confirmed vit no.[id number] tablet 02/10/21 [Classic ] vitamin B complex [B tablet 02/10/21 Complex-Vitamin B12] Allergies Allergy/AdvReac Type Severity Reaction Status Date / Time No Known Allergies Allergy Verified 03/10/21 11:26 Review of Systems Review of Systems: All systems reviewed & are unremarkable except as noted in HPI and below PMFSH Past Medical History Medical History Anxiety Kidney stone Ovarian cyst Surgical History Surgical History History of tonsillectomy [place] teeth removed Social History Social History Smoking status: Never smoker Gender identity (if verbalized by the patient): Female Exam Const: General: no acute distress and alert Orientation/consciousness: patient oriented x3 Eyes: EOM: EOMs intact bilaterally Resp: Effort & Inspection: normal respiratory effort and no retractions Auscultation: clear to auscultation bilaterally Cardio: Rate: regular rate Rhythm: abnormal rhythm Heart sounds: no murmurs GI: GI Palp: Yes Soft to palpation, Yes Tenderness to palpation present (GI) (RUQ, bilateral lower quadrant) and No Guarding due to palpation present (GI) Auscultation: normal bowel sounds : General: Yes no CVA tenderness Skin: General skin exam: normal color Rashes: no rashes Neuro: General: patient oriented x3, moves all extremities and CN's II-XI intact bilaterally Psych: Mental Status: mental status grossly normal Affect: normal affect Course Reevaluation(s) Reevaluation #1: I have discussed with patient labs are unremarkable. US shows normal GB and IUP. heart rate is elevated so will hydrated patient. I Discussed discharge plan and treatment. She denies any questions or concerns. urine has some bacteria so will place on antibiotics. Date: 03/10/21 Time: 13:20 Vital Signs Vital signs: Vital Signs Temperature 98.3 F 03/10/21 10:47 Pulse Rate 109 H 03/10/21 10:47 Respiratory Rate 14 03/10/21 10:47 Blood Pressure 122/68 03/10/21 10:47 Pulse Oximetry 100 03/10/21 10:47 Temperature 97.7 F 03/10/21 14:21 Pulse Rate 90 03/10/21 14:21 Respiratory Rate 14 03/10/21 14:21 Blood Pressure 108/64 03/10/21 14:21 Pulse Oximetry 100 03/10/21 14:21 MDM - Abdominal Pain Lab Data Attestation: I reviewed the patient's lab results. Result diagrams: 03/10/21 10:54 03/10/21 10:54 Labs: Lab Results 03/10/21 03/10/21 03/10/21 Range/Units 10:54 10:54 10:54 WBC 6.3 (4.5-10.0) K/mm3 RBC 4.38 (4.2-5.4) M/mm3 Hgb 13.7 (12.0-15.0) g/dL Hct 40.7 (37.0-47.0) % MCV 92.9 (80-100) fl MCH 31.3 (26-34) pg MCHC 33.7 (32-36) g/dl RDW 13.7 (11.5-14.5) % Plt Count 228 (150-375) k/mm3 MPV 11.4 H (7.4-10.4) fl Immature Gran % (Auto) 0.3 (0-0.5) % Neut % (Auto) 67.7 (45.5-73.1) % Lymph % (Auto)
--- NOTE | 2021-03-10 12:06 | PC.NURSE ---
FHT 164
[2021-03-10 12:07] VITALS: BP 110/69; BP 112/79; BP 118/75; PULSE 105; PULSE 74; PULSE 88
[2021-03-10] MEDS: ONDANSETRON HCL ODT 4 MG TABLET PO (12:27)
[2021-03-10] MEDS: ACETAMINOPHEN 500 MG TABLET 1000 MG PO (12:27)
[2021-03-10] MEDS: SODIUM CHLORIDE 0.9% IV 1,000 ML 999 ML IV CONT (12:55)
[2021-03-10 14:21] VITALS: BP 108/64; PULSE 90; RESP 14; TEMP 36.5; O2SAT 100
== END 2021-03-10 14:22 | disposition home or self-care (01) ==
PROVIDERS: Emergency Medicine; Emergency Provider General Practice
DX: O26.811 Pregnancy related exhaustion and fatigue, first trimester (principal); R10.11 Right upper quadrant pain; R82.71 Bacteriuria; Z3A.08 8 weeks gestation of pregnancy
CPT/HCPCS: 36415; 76705; 76801; 80053; 81001; 81025; 83690; 84702; 85025; 85461; 96360; 99284; A9270; J7030

== ENCOUNTER 2021-04-05 18:22 | Observation (INO) | payer OTHER, SELFPAY ==
--- NOTE | ~2021-04-05 | US_ITS ---
EXAMINATION: US renal BI DATE: 04/06/2021 15:30 INDICATION: Right flank pain. 13 weeks . TECHNIQUE: Multiple ultrasound grayscale images of the kidneys were obtained. COMPARISON: CT abdomen and pelvis 11/03/2020, 08/26/20 FINDINGS: The right kidney measures 10.7 x 5.1 x 6.1 cm. The left kidney measures 11.0 x 5.9 x 5.0 cm. The kidn eys demonstrate normal parenchymal echogenicity. The arterial resistive indices are normal in the kid neys. There is mild right hydronephrosis and hydroureter. The bladder is normal. IMPRESSION: 1. Mild right hydronephrosis and hydroureter, stable or recurrent from 11/03/2020 and new from 021. Reviewed, dictated and finalized at location A. NCT TEACHER IMPRESSION: 1. Mild right hydronephrosis and hydroureter, stable or recurrent from 11/04/19 21 and new from 08/26/2020.
[2021-04-05 18:30] VITALS: BP 117/75; PULSE 83; RESP 20; TEMP 36.4; O2SAT 100
[2021-04-05 19:52] LABS: Add Urine Microscopic? YES; Appearance Urine Cloudy (Clear); Bacteria Urine Trace /hpf; Bilirubin Urine Negative (Negative); Blood Urine 1+ (Negative); Budding Yeast Urine Present /hpf; Color Urine Yellow (Yellow); Glucose Urine UA Negative (Negative); Ketones Urine 2+ mg/dL (Negative); Leukocyte Esterase Ur 2+ LEU/UL (Negative); Mucus Urine Rare /lpf; Nitrate Urine Negative (Negative); Protein Urine Negative (Negative); Specific Grav Ur 1.019 (1.001-1.035); Squamous Epithelial Cell Urine Many /hpf (Few); Urobilinogen Urine Negative mg/dL (<2.0); WBC Urine 31-50 /hpf
[2021-04-05 20:05] LABS: Basophils Percent Auto 0.2 % (0.2-1.2); Eosinophils Percent Auto 0.5 % (0-4.4); Hematocrit 36.1 % (37.0-47.0); Hemoglobin 12.4 g/dL (12.0-15.0); Immature Granulocyte Absolute 0.02 K/mm3 (0.00-0.031); Immature Granulocyte Percent A 0.3 % (0-0.5); Lymphocytes Absolute Auto 1.84 K/mm3 (0.9-3.2); Lymphocytes Percent Auto 28.8 % (18.3-44.2); Mean Corpuscular HGB Conc 34.3 g/dl (32-36); Mean Corpuscular Hemoglobin 31.8 pg (26-34); Mean Corpuscular Volume 92.6 fl (80-100); Mean Platelet Volume 11.2 fl (7.4-10.4); Monocytes Absolute Auto 0.4 K/mm3 (0.1-0.6); Monocytes Percent Auto 6.9 % (2.6-8.5); Neutrophils Absolute Auto 4.1 K/mm3 (1.3-6.7); Neutrophils Percent Auto 63.3 % (45.5-73.1); Platelet Count Result 160 k/mm3 (150-375); Red Cell Distribution Width 13.3 % (11.5-14.5); White Blood Count 6.4 K/mm3 (4.5-10.0)
--- NOTE | 2021-04-05 20:11 | ED.FEMALEGU ---
HPI - Female Genitourinary General Chief complaint: Urogenital-Female Stated complaint: right flank pain Time Seen by Provider: 04/05/21 19:39 Source: patient Mode of arrival: ambulatory Limitations: no limitations History of Present Illness HPI Narrative: This is a 20 year old , about 13 weeks that presents to the ER for right sided flank pain present over the last 3 days. Reports sharp pains in the right flank which have been intermittent in nature. Reports over the last couple hours the pain has been more constant. She has been taking Tylenol with little relief. She was seen at another ER a couple of days ago diagnosed with a urinary tract infection and started on Macrobid. She has had no relief with this. Reports nausea and vomiting. Does report history of kidney stones, and that this pain feels similar. Denies fever, dysuria, hematuria. Related Data Home Medications Medication Instructions Recorded Confirmed vit no.[id number] tablet 02/10/21 [Classic ] vitamin B complex [B tablet 02/10/21 Complex-Vitamin B12] Allergies Allergy/AdvReac Type Severity Reaction Status Date / Time No Known Allergies Allergy Verified 03/10/21 11:26 Review of Systems Review of Systems: CONSTITUTIONAL: Denies fever GASTROINTESTINAL: Reports abdominal pain, nausea. Denies vomiting GENITOURINARY: Denies dysuria or hematuria. All systems reviewed & are unremarkable except as noted in HPI and below PMFSH Past Medical History Medical History Anxiety Kidney stone Ovarian cyst Surgical History Surgical History History of tonsillectomy [place] teeth removed Social History Social History Smoking status: Never smoker Gender identity (if verbalized by the patient): Female Exam Narrative: GENERAL: Well-appearing, well-nourished, and in no acute distress. HEAD: Normocephalic, atraumatic. EYES: EOMI. CHEST: Clear to auscultation. No respiratory distress. No wheezes rales or rhonchi HEART: Regular rate and rhythm. No murmur heard. Normal peripheral pulses. ABDOMEN: Soft, nondistended, normal active bowel sounds. Tender to palpation throughout the right side of the abdomen, without guarding. Right-sided CVA tenderness EXTREMITIES: Normal range of motion. No edema. SKIN: Warm, dry, no rash. NEURO: No focal deficits. Alert and oriented x3. PSYCH: Normal mood and affect Course Consultations Consultation #1: Spoke with Dr. Schumacher about patient and workup. Patient will be admitted for pain control and further evaluation with renal ultrasound Date: 04/05/21 Time: 22:00 Consultation #2: Spoke with Dr. Newton about patient and workup who will consult if positive findings on ultrasound Date: 04/05/21 Time: 22:20 Vital Signs Vital signs: Vital Signs Temperature 97.5 F L 04/05/21 18:30 Pulse Rate 83 04/05/21 18:30 Respiratory Rate 20 04/05/21 18:30 Blood Pressure 117/75 04/05/21 18:30 Pulse Oximetry 100 04/05/21 18:30 Temperature 97.5 F L 04/05/21 18:30 Pulse Rate 97 04/05/21 21:30 Respiratory Rate 18 04/05/21 21:30 Blood Pressure 133/77 04/05/21 21:30 Pulse Oximetry 100 04/05/21 21:30 MDM - Female Genitourinary MDM Narrative Medical decision making narrative: Patient presents to the emergency department for right flank pain ongoing over the last couple of days. Reports the pain is sharp in nature. Today associated with nausea and vomiting. She is afebrile and nontoxic-appearing. White blood cell count is normal. Metabolic panel without concerning findings. UA with 11-20 red blood cells and 31-50 white blood cells. I did perform a bedside ultrasound with appropriate cardiac activity. Patient has history of kidney stones and reports that this pain feels similar. Patient was here past t
[2021-04-05 20:14] LABS: Anion Gap 9 mmol/L (8-16); Blood Urea Nitrogen 3 mg/dL (7-17); Calcium 9.7 mg/dL (8.4-10.2); Carbon Dioxide 22 mmol/L (22-30); Chloride 103 mmol/L (98-107); Estimated CRCL calculation 119 ml/min; Estimated Glomerular Filt Rate > 60; Glucose 90 mg/dL (65-110); Potassium 3.4 mmol/L (3.4-5.0); Sodium 134 mmol/L (137-145)
[2021-04-05 20:46] LABS: Alanine Aminotransferase 13 U/L (4-35); Albumin Level 4.1 g/dL (3.5-5.1); Alkaline Phosphatase 59 U/L (38-126); Aspartate Amino Transferase 19 U/L (14-36); Bilirubin,Total 0.4 mg/dL (0.2-1.3); Lipase 55 U/L (23-300)
[2021-04-05] MEDS: SODIUM CHLORIDE 0.9% IV 1,000 ML 999 ML IV CONT (21:12)
[2021-04-05] MEDS: ONDANSETRON INJ 4 MG/2 ML VIAL IV PUSH (21:13)
[2021-04-05] MEDS: FAMOTIDINE 20 MG/2 ML VIAL IV PUSH (21:13)
[2021-04-05] MEDS: MORPHINE SULFATE (*CRX) 2 MG/ML INJ IV PUSH (21:23)
[2021-04-05] MEDS: SODIUM CHLORIDE 0.9% IV 100 ML 999 ML (21:25)
[2021-04-05 21:30] VITALS: BP 133/77; PULSE 97; RESP 18; O2SAT 100
[2021-04-05] MEDS: diphenhydrAMINE HCl INJ 50 MG/ML VIAL 25 MG IV PUSH (22:19)
[2021-04-05] MEDS: METOCLOPRAMIDE HCL INJ 10 MG/2 ML VIAL IV PUSH (22:19)
[2021-04-05] MEDS: SODIUM CHLORIDE 0.9% IV 1,000 ML 125 ML IV CONT (23:05)
[2021-04-06 00:35] VITALS: BP 102/58; PULSE 84; RESP 100; TEMP 36.4; O2SAT 16; BMI 24.0
[2021-04-06] MEDS: SODIUM CHLORIDE 0.9% IV 1,000 ML 125 ML IV CONT ×2 (02:58→15:32)
[2021-04-06 03:03] VITALS: BMI 24.0
--- NOTE | 2021-04-06 03:07 | PC.NURSE ---
This patient, Ginger Chaidez, was admitted to [facility] Surg Room 303-01. Patient/family oriented to hospital policies and general routines including ID bracelet, bed and alarms, visiting hours, pain management, procedures, bathroom and other care routines, personal items, smoking policy, room service/diet, and visiting hours. Information on how to activate the Rapid Response Team has been discussed. Patient/Family are encouraged to report perceived risks to care and to ask questions if they do not understand what they are told or what they should do.
[2021-04-06] MEDS: MORPHINE SULFATE (*CRX) 4 MG/ML INJ 2 MG IV PUSH (05:38)
[2021-04-06] MEDS: ONDANSETRON INJ 4 MG/2 ML VIAL IV PUSH ×3 (05:44→20:49)
[2021-04-06 06:00] VITALS: BP 101/64; PULSE 80; RESP 16; TEMP 36.2; O2SAT 99
--- NOTE | 2021-04-06 12:34 | WPDURCON ---
Assessment and Plan Assessment and plan (1) Right flank pain: Code(s): R10.9 - Unspecified abdominal pain Status: Acute Assessment and Plan: etiology at this time unknown. She has a history of kidney stones. Unfortunately she has never collected one for analysis. CT scan in October of 2020 does show punctate nephrolithiasis. I have ordered a renal/bladder ultrasound for today. Will look for hydronephrosis and ureteral jets. If she is passing a stone I would try to observe at this time as it is likely a very small stone giving the findings on her prior CT. would strain urine and start her on Flomax if okay with obstetrics. no intervention planned for today, but I did discuss with her if we need to intervene we would place a ureteral stent. This would result in need for stent changes monthly while . (2) Intrauterine : Code(s): Z34.90 - Encounter for supervision of normal , unspecified, unspecified trimester Status: Acute Urology Consult Note HPI Date Seen: 04/06/21 Requesting Physician: Rober Schumacher MD Primary Care Provider: SPACE PHYSICIST PHYSICIAN Consult Narrative Narrative: Ginger Chaidez is a 20 year old female who is seen at the request of Gynecology. Her inspector integrated circuits is not at this facility. She see someone in [place]. She is currently 12 weeks . She comes in complaining of flank pain since . There was no associated urinary symptoms. She denied any fevers or chills. She denied any dysuria. She denied any visible blood in the urine. She states her urgent care started on antibiotics. She states the flank pain intensified and this prompted a visit to the emergency room. No imaging was done as ultrasound was not available. She currently states she is feeling improved. She is tolerating a diet. she has a family history of stone disease. She states she thinks she has passed stones in the past but has never collected any. Over the last 2 years she has had 4 visits to this emergency room for flank pain. Each resulted in a CT scan which shows no ureteral stones. She does have punctate nephrolithiasis noted on her most recent CT scan In October of 2020. Review of Systems Review of Systems: All systems reviewed & are unremarkable except as noted in HPI and below PMFSH Past Medical History Medical History Anxiety Kidney stone Ovarian cyst Surgical History Surgical History History of tonsillectomy [place] teeth removed Social History Social History Smoking status: Never smoker Second hand tobacco smoke exposure: Yes Alcohol intake: never Substance use: never Substance use type: does not use Gender identity (if verbalized by the patient): Female Spiritual care concerns: No Meds Home Medications and Allergies Home Medications Medication Instructions Recorded Confirmed Type vit no.[id number] 28 tablet PO DAILY 02/10/21 04/06/21 History [Classic ] pantoprazole 40 mg PO DAILY 04/06/21 04/06/21 History Allergies Allergy/AdvReac Type Severity Reaction Status Date / Time No Known Allergies Allergy Verified 03/10/21 11:26 Vital Signs Vital Signs - 24 hr 04/05/21 18:30 04/05/21 21:30 04/06/21 00:35 Temperature 97.5 F L 97.5 F L Pulse Rate 83 97 84 Respiratory Rate 20 18 100 H Blood Pressure 117/75 133/77 102/58 L Pulse Oximetry 100 100 16 L 04/06/21 06:00 Temperature 97.2 F L Pulse Rate 80 Respiratory Rate 16 Blood Pressure 101/64 Pulse Oximetry 99 Exam Const: General: cooperative, healthy appearing and no acute distress Nutritional Appearance: average body habitus HENMT: Head: normal to inspection General nose exam: Normal external nose present Mouth: Yes Normal oral and palatal mucosa present Eyes:
--- NOTE | 2021-04-06 12:51 | PM.IMHP ---
H&P: HPI History of Present Illness Date/Time: 04/06/21 12:51 20 y/o G1 at 13 based on LMP 01/06/21, consistent with ultrasound at [facility] on 03/10/21. EDC by LMP is 10/13/21. She has a history of kidney stones. CT here in October showed punctate kidney stones. She has had several visits to several hospitals so far in this , mostly for abdominal pain complaints. In the current episode, she developed pain last night. Was seen in [place] where they treated her with Macrobid for a UTI and sent her home. Pain did not improve, so she came to [place] last night. We have admitted her for pain control. She says pain is sometimes a 10/10, but waxes and wanes. Although she looks comfortable during my interview, she says her pain is a 6/10 currently. No fevers. No dysuria. No vaginal bleeding. She is a patient of a Dr. Jin in [place], [place]. Chief Complaint: Pain Review of Systems Review of Systems: All systems reviewed & are unremarkable except as noted in HPI and below PMFSH Past Medical History Medical History Anxiety Kidney stone Ovarian cyst Surgical History Surgical History History of tonsillectomy [place] teeth removed Social History Social History Smoking status: Never smoker Second hand tobacco smoke exposure: Yes Alcohol intake: never Substance use: never Substance use type: does not use Gender identity (if verbalized by the patient): Female Spiritual care concerns: No Meds Home Medications and Allergies Home Medications Medication Instructions Recorded Confirmed Type vit no.[id number] 28 tablet PO DAILY 02/10/21 04/06/21 History [Classic ] pantoprazole 40 mg PO DAILY 04/06/21 04/06/21 History Allergies Allergy/AdvReac Type Severity Reaction Status Date / Time No Known Allergies Allergy Verified 03/10/21 11:26 Vital Signs Vital Signs - 24 hr 04/05/21 18:30 04/05/21 21:30 04/06/21 00:35 Temperature 36.4 C L 36.4 C L Pulse Rate 83 97 84 Respiratory Rate 20 18 100 H Blood Pressure 117/75 133/77 102/58 L Pulse Oximetry 100 100 16 L 04/06/21 06:00 Temperature 36.2 C L Pulse Rate 80 Respiratory Rate 16 Blood Pressure 101/64 Pulse Oximetry 99 Exam Const: Orientation/consciousness: patient oriented x3 Other: Well-developed, well-nourished female in no acute distress. Neck: Thyroid: thyroid normal Lymphatic: no lymphadenopathy noted (in neck, axilla or inguinal nodes) Resp: Effort & Inspection: normal respiratory effort Auscultation: clear to auscultation bilaterally Cardio: Rate: regular rate Rhythm: regular rhythm Heart sounds: S1 normal heart sound present and S2 normal heart sound present GI: Other: ABD: Soft, nontender, nondistended. No guarding or rebound tenderness. No hepatosplenomegaly. : General: Yes no CVA tenderness Other: Deferred. Back/Spine/Pelvis: Back: CVA tenderness (right) Skin: General skin exam: normal color and no rashes or lesions noted Neuro: General: patient oriented x3 Extrem: Other: Extremities: nontender with no edema Psych: Mental Status: mental status grossly normal Affect: normal affect H&P: Results Labs Labs: Short CBC 04/05/21 Range/Units 20:00 WBC 6.4 (4.5-10.0) K/mm3 Hgb 12.4 (12.0-15.0) g/dL Hct 36.1 L (37.0-47.0) % Plt Count 160 (150-375) k/mm3 BMP 04/05/21 20:00 Sodium 134 L Potassium 3.4 Chloride 103 Carbon Dioxide 22 BUN 3 L Creatinine 0.60 L Glucose 90 Calcium 9.7 Liver Function 04/05/21 Range/Units 19:59 Total Bilirubin 0.4 (0.2-1.3) mg/dL Direct Bilirubin 0.0 (0-0.3) mg/dL AST 19 (14-36) U/L ALT 13 (4-35) U/L Alkaline Phosphatase 59 (38-126) U/L Albumin 4.1 (3.5-5.1) g/dL Urine 04/05/21 Range
[2021-04-06 14:00] VITALS: BP 106/53; PULSE 102; RESP 16; TEMP 36.1; O2SAT 100
[2021-04-06 21:53] VITALS: BP 102/61; PULSE 75; RESP 18; TEMP 36.6; O2SAT 100
--- NOTE | 2021-04-22 16:01 | PM.DS ---
DS: Admitting Diagnosis Discharge Date 04/06/21 Admitting Diagnosis Flank pain DS: Discharge Diagnosis Discharge Diagnosis (1) Right flank pain: Code(s): R10.9 - Unspecified abdominal pain Status: Acute (2) Intrauterine : Code(s): Z34.90 - Encounter for supervision of normal , unspecified, unspecified trimester Status: Acute DS: Summary Hospital Course Hospital Course: 20 y/o at 13 weeks gestation with flank pain, under treatment for UTI. Pain improved with Tylenol. Urology consulted. If she is passing a stone, it is likely small. Was able to go home on HD 2 to f/u with her home OB. Discharge Plan Discharge Attending physician on discharge: Rober Schumacher Consulting providers: Jamal Park ; Nils Newton ; Matthew Jeong V. Discharging Clinician: Rober Schumacher Patient Disposition: Home, Self-Care Activity: as tolerated Diet: regular Discharge Instructions: Call or return if temperature above 100.4? F, increased abdominal pain, vaginal bleeding or any new problems. Patient Instructions: Antibiotic Form Stand Alone Forms: General Discharge Information Follow-up/Referrals: Rober Schumacher MD [Physician] - 1 Week (if unable to schedule with usual CASE INVESTIGATOR, Dr. Jin.) Discharge Medications: Continued Classic 28 mg iron- 800 mcg Tablet 28 tablet PO DAILY RF: 0 pantoprazole 40 mg tablet,delayed release (DR/EC) 40 mg PO DAILY RF: 0 No Action nitrofurantoin monohyd/m-cryst [Macrobid] 100 mg capsule 100 mg PO Q12H 7 Days Qty: 14 RF: 0 Date of admission: 04/05/21 22:17 Primary Care Provider: PHYSICIAN,NEIGHBORHOOD AIDE Admitting Provider: Rober Schumacher Attending physician on admission: Rober Schumacher Condition: Stable
== END 2021-04-06 23:20 | disposition home or self-care (01) ==
LOC: ANHED 21:23 → ANH3MEDSUR 22:50
PROVIDERS: Physician Assistant; Admitting Provider Obstetrics & Gynecology; Emergency Provider Emergency Medicine; Visit Provider Obstetrics & Gynecology
DX: O23.01 Infections of kidney in pregnancy, first trimester (principal); O99.891 Other specified diseases and conditions complicating pregnancy; N13.30 Unspecified hydronephrosis; N39.0 Urinary tract infection, site not specified; Z3A.13 13 weeks gestation of pregnancy
CPT/HCPCS: 36415; 76775; 80048; 80076; 81001; 82365; 83690; 84702; 85025; 87086; 87088; 88300; 96361; 96365; 96367; 96374; 96375; 96376; 99285; G0378; G0379; J0131; J0696; J1200; J2270; J2405; J2765; J7030

== ENCOUNTER 2021-04-08 01:59 | Emergency (ER) | payer OTHER, SELFPAY ==
[2021-04-08 02:04] VITALS: BP 116/61; PULSE 98; RESP 18; TEMP 36.8; O2SAT 99
[2021-04-08 03:31] VITALS: BP 111/63; PULSE 92; RESP 16; O2SAT 97
--- NOTE | 2021-04-08 03:49 | ED.GENADULT ---
HPI - General Adult General Chief complaint: Back Pain/Injury Stated complaint: R. sided pain Time Seen by Provider: 04/08/21 03:22 History of Present Illness HPI narrative: Patient 20-year-old female who presents to emergency department with chief complaint of right flank pain. The patient reports that she is currently and has history of kidney stones the patient was seen in the emergency department recently and was actually admitted to the hospital for pain control had a renal ultrasound that showed mild hydronephrosis but no visible stone. The patient reports that her pain had been controlled while she was in the hospital and reports that she was feeling better and was discharged home. Patient states this evening the pain came back and she is very uncomfortable. The patient reports she is been able to pass stones before in the past does have a urologist that she had seen when she lived in [place]. Related Data Home Medications Medication Instructions Recorded Confirmed Classic 28 tablet PO DAILY 02/10/21 04/06/21 pantoprazole 40 mg PO DAILY 04/06/21 04/06/21 Allergies Allergy/AdvReac Type Severity Reaction Status Date / Time No Known Allergies Allergy Verified 04/08/21 03:32 Review of Systems Review of Systems: A 10 system review of systems was completed on the patient and is negative except for what is stated in the HPI. Nursing and ancillary documentation was reviewed. PMFSH Past Medical History Medical History Anxiety Kidney stone Ovarian cyst Surgical History Surgical History History of tonsillectomy [place] teeth removed Social History Social History Smoking status: Never smoker Second hand tobacco smoke exposure: Yes Alcohol intake: never Substance use: never Substance use type: does not use Gender identity (if verbalized by the patient): Female Spiritual care concerns: No Exam Narrative: GENERAL: Well-appearing, well-nourished, and in no acute distress. HEAD: Normocephalic, atraumatic. EYES: PERRLA and EOMI. ENT: Nares clear, no rhinorrhea or epistaxis. Mucous membranes moist. NECK: Supple. CHEST: Clear to auscultation. No respiratory distress. HEART: Regular rate and rhythm. No murmur heard. Normal peripheral pulses. ABDOMEN: Soft, nontender, nondistended, normal active bowel sounds. EXTREMITIES: Normal range of motion. No edema. SKIN: Warm, dry, no rash. NEURO: No focal deficits. Alert and oriented x3. PSYCH: Normal mood and affect. Course Vital Signs Vital signs: Vital Signs Temperature 36.8 C 04/08/21 02:04 Pulse Rate 98 04/08/21 02:04 Respiratory Rate 18 04/08/21 02:04 Blood Pressure 116/61 04/08/21 02:04 Pulse Oximetry 99 04/08/21 02:04 Temperature 36.8 C 04/08/21 02:04 Pulse Rate 93 04/08/21 04:45 Respiratory Rate 16 04/08/21 04:45 Blood Pressure 111/65 04/08/21 04:45 Pulse Oximetry 100 04/08/21 04:45 Medical Decision Making Vital Signs Vital Signs: Vital Signs Temperature 36.8 C 04/08/21 02:04 Pulse Rate 98 04/08/21 02:04 Respiratory Rate 18 04/08/21 02:04 Blood Pressure 116/61 04/08/21 02:04 Pulse Oximetry 99 04/08/21 02:04 Temperature 36.8 C 04/08/21 02:04 Pulse Rate 93 04/08/21 04:45 Respiratory Rate 16 04/08/21 04:45 Blood Pressure 111/65 04/08/21 04:45 Pulse Oximetry 100 04/08/21 04:45 Lab Data Result diagrams: 04/08/21 04:27 04/08/21 04:27 Labs: Lab Results 04/08/21 04/08/21 04/08/21 Range/Units 04:27 04:27 04:27 WBC 7.1 (4.5-10.0) K/mm3 RBC 3.51 L (4.2-5.4) M/mm3 Hgb 11.1 L (12.0-15.0) g/dL Hct 32.8 L (37.0-47.0) % MCV 93.4 (80-100) fl MCH 31.6 (26-34) pg MCHC 33.8 (32-36) g/dl RDW 13.
[2021-04-08 04:35] LABS: Basophils Percent Auto 0.1 % (0.2-1.2); Eosinophils Absolute Auto 0.1 K/mm3 (0-0.3); Eosinophils Percent Auto 1.3 % (0-4.4); Hematocrit 32.8 % (37.0-47.0); Hemoglobin 11.1 g/dL (12.0-15.0); Immature Granulocyte Absolute 0.01 K/mm3 (0.00-0.031); Immature Granulocyte Percent A 0.1 % (0-0.5); Lymphocytes Absolute Auto 2.08 K/mm3 (0.9-3.2); Lymphocytes Percent Auto 29.4 % (18.3-44.2); Mean Corpuscular HGB Conc 33.8 g/dl (32-36); Mean Corpuscular Hemoglobin 31.6 pg (26-34); Mean Corpuscular Volume 93.4 fl (80-100); Mean Platelet Volume 11.7 fl (7.4-10.4); Monocytes Absolute Auto 0.6 K/mm3 (0.1-0.6); Monocytes Percent Auto 8.2 % (2.6-8.5); Neutrophils Absolute Auto 4.3 K/mm3 (1.3-6.7); Neutrophils Percent Auto 60.9 % (45.5-73.1); Platelet Count Result 156 k/mm3 (150-375); Red Blood Count 3.51 M/mm3 (4.2-5.4); Red Cell Distribution Width 13.5 % (11.5-14.5); White Blood Count 7.1 K/mm3 (4.5-10.0)
[2021-04-08] MEDS: SODIUM CHLORIDE 0.9% IV 1,000 ML 999 ML IV CONT (04:37)
[2021-04-08] MEDS: METOCLOPRAMIDE HCL INJ 10 MG/2 ML VIAL IV PUSH (04:38)
[2021-04-08] MEDS: MORPHINE SULFATE (*CRX) 4 MG/ML INJ IV PUSH (04:38)
[2021-04-08 04:40] LABS: Add Urine Microscopic? YES; Appearance Urine Cloudy (Clear); Bacteria Urine Trace /hpf; Bilirubin Urine Negative (Negative); Blood Urine 2+ (Negative); Color Urine Yellow (Yellow); Glucose Urine UA Negative (Negative); Ketones Urine 1+ mg/dL (Negative); Leukocyte Esterase Ur Trace LEU/UL (Negative); Mucus Urine Rare /lpf; Nitrate Urine Negative (Negative); Protein Urine Negative (Negative); Specific Grav Ur 1.014 (1.001-1.035); Squamous Epithelial Cell Urine Moderate /hpf (Few); Urobilinogen Urine Negative mg/dL (<2.0)
[2021-04-08 04:45] VITALS: BP 111/65; PULSE 93; RESP 16; O2SAT 100
[2021-04-08 04:46] LABS: Alanine Aminotransferase 12 U/L (4-35); Albumin Level 3.5 g/dL (3.5-5.1); Alkaline Phosphatase 52 U/L (38-126); Anion Gap 8 mmol/L (8-16); Aspartate Amino Transferase 19 U/L (14-36); Bilirubin,Total 0.2 mg/dL (0.2-1.3); Blood Urea Nitrogen 6 mg/dL (7-17); Calcium 9.3 mg/dL (8.4-10.2); Carbon Dioxide 23 mmol/L (22-30); Chloride 105 mmol/L (98-107); Estimated CRCL calculation 140 ml/min; Estimated Glomerular Filt Rate > 60; Glucose 89 mg/dL (65-110); Potassium 3.3 mmol/L (3.4-5.0); Sodium 136 mmol/L (137-145)
[2021-04-08 05:33] VITALS: PULSE 87; RESP 16; O2SAT 99
== END 2021-04-08 05:33 | disposition home or self-care (01) ==
PROVIDERS: Emergency Provider Emergency Medicine
DX: O23.11 Infections of bladder in pregnancy, first trimester (principal); O99.891 Other specified diseases and conditions complicating pregnancy; N23 Unspecified renal colic; Z3A.13 13 weeks gestation of pregnancy
CPT/HCPCS: 36415; 80053; 81001; 85025; 87086; 96361; 96374; 96375; 99284; J2270; J2765; J7030

== ENCOUNTER 2021-05-11 09:49 | Emergency (ER) | payer OTHER, SELFPAY ==
--- NOTE | ~2021-05-11 | US_ITS ---
EXAMINATION: US OB follow up DATE: 05/11/2021 11:55 INDICATION: Abdominal pain and flank pain during second trimester of . TECHNIQUE: Real-time ultrasound of the pelvis was performed. The interpreting radiologist was not pre sent for the study. COMPARISON: None. FINDINGS: There is a single living fetus in variable presentation. The placenta is anterior. heart rate is 154 beats per minute (bpm). The amniotic volume is subjectively normal. The following biometric data were obtained: BPD: 3.8 cm -> 17 weeks 5 days Head circumference: 14.3 cm -> 17 weeks 4 days Abdominal circumference: 12.4 cm -> 18 weeks 0 days Femur length: 2.3 cm -> 16 weeks 6 days These measurements are concordant. Head circumference to abdominal circumference ratio: 1.16 (normal range 1.08-1.28). Estimated weight: 197 g (+/-) 30 g or 7 oz. (+/-) 1 oz. IMPRESSION: 1. Single living fetus in variable presentation with heart rate of 154 bpm. 2. Estimated weight is 31st percentile by Hadlock criteria when 10/14/2021 is used as the estimat ed date of delivery (JOHNNY). Please correlate with clinical information or earlier ultrasounds for most accurate JOHNNY. Reviewed, dictated and finalized at location B. E SHEAR SET UP OPERATOR IMPRESSION: 1. Single living fetus in variable presentation with heart rate of 154 bp m. 2. Estimated weight is 31st percentile by Hadlock criteria when 10/14/2021 is used as the estimated date of delivery (JOHNNY). Please correlate with clinical information or earlier ultrasounds for most accurate JOHNNY.
--- NOTE | ~2021-05-11 | US_ITS ---
EXAMINATION: US renal BI DATE: 05/11/2021 13:16 INDICATION: Left flank pain during second trimester . TECHNIQUE: Multiple ultrasound grayscale images of the kidneys were obtained. COMPARISON: None. FINDINGS: The right kidney measures 10.2 x 4.5 x 5.6 cm. The left kidney measures 11.1 x 6.0 x 4.9 cm. The kidn eys demonstrate normal echogenicity. There is no hydronephrosis in either kidney. Arterial resistive indices of between 0.56-0.64 in the right kidney and 0.58-0.67 in the left kidney which are within no rmal limits. No stones identified. The bladder is decompressed as the patient had voided just prior t o imaging and which limits evaluation of the bladder. IMPRESSION: 1. Normal kidneys without hydronephrosis. Reviewed, dictated and finalized at location B. SURY ASSOCIATE
[2021-05-11 10:14] VITALS: BP 124/76; PULSE 100; RESP 18; TEMP 36.3; O2SAT 100
[2021-05-11 11:12] LABS: Basophils Percent Auto 0.2 % (0.2-1.2); Eosinophils Percent Auto 0.3 % (0-4.4); Hematocrit 38.3 % (37.0-47.0); Hemoglobin 13.7 g/dL (12.0-15.0); Immature Granulocyte Absolute 0.03 K/mm3 (0.00-0.031); Immature Granulocyte Percent A 0.3 % (0-0.5); Lymphocytes Absolute Auto 1.57 K/mm3 (0.9-3.2); Lymphocytes Percent Auto 13.8 % (18.3-44.2); Mean Corpuscular HGB Conc 35.8 g/dl (32-36); Mean Corpuscular Hemoglobin 33.1 pg (26-34); Mean Corpuscular Volume 92.5 fl (80-100); Mean Platelet Volume 11.5 fl (7.4-10.4); Monocytes Absolute Auto 0.7 K/mm3 (0.1-0.6); Monocytes Percent Auto 6.3 % (2.6-8.5); Neutrophils Percent Auto 79.1 % (45.5-73.1); Platelet Count Result 213 k/mm3 (150-375); Red Blood Count 4.14 M/mm3 (4.2-5.4); Red Cell Distribution Width 13.4 % (11.5-14.5); White Blood Count 11.4 K/mm3 (4.5-10.0)
[2021-05-11 11:24] LABS: Alanine Aminotransferase 15 U/L (4-35); Albumin Level 4.6 g/dL (3.5-5.1); Alkaline Phosphatase 69 U/L (38-126); Anion Gap 10 mmol/L (8-16); Aspartate Amino Transferase 24 U/L (14-36); Bilirubin,Total 0.6 mg/dL (0.2-1.3); Blood Urea Nitrogen 3 mg/dL (7-17); Calcium 9.9 mg/dL (8.4-10.2); Carbon Dioxide 25 mmol/L (22-30); Chloride 104 mmol/L (98-107); Estimated CRCL calculation 103 ml/min; Estimated Glomerular Filt Rate > 60; Glucose 87 mg/dL (65-110); Lipase 64 U/L (23-300); Potassium 3.3 mmol/L (3.4-5.0); Sodium 139 mmol/L (137-145)
[2021-05-11 11:26] LABS: Add Urine Microscopic? YES; Appearance Urine Cloudy (Clear); Bacteria Urine 1+ /hpf; Bilirubin Urine Negative (Negative); Blood Urine 1+ (Negative); Color Urine Yellow (Yellow); Glucose Urine UA Negative (Negative); Ketones Urine 1+ mg/dL (Negative); Leukocyte Esterase Ur 2+ LEU/UL (Negative); Mucus Urine Few /lpf; Nitrate Urine Negative (Negative); Protein Urine 1+ mg/dL (Negative); RBC Urine 51-75 /hpf (0-2); Specific Grav Ur 1.025 (1.001-1.035); Squamous Epithelial Cell Urine Many /hpf (Few); Urobilinogen Urine Negative mg/dL (<2.0); WBC Urine 31-50 /hpf
--- NOTE | 2021-05-11 11:28 | ED.ABDPAIN ---
HPI - Abdominal Pain General Chief Complaint: Abdominal Pain Stated Complaint: left flank pain Time Seen by Provider: 05/11/21 11:03 Source: patient Mode of arrival: ambulatory Limitations: no limitations History of Present Illness HPI narrative: This is a 20 year old , about 18 weeks , that presents to the ER for left flank pain. Present since this morning. Reports a sharp pain in the left flank. Also reports she had a loose stool that had some mucus today. Reports some abdominal cramping and nausea. Her OB is Dr. Jin in [place]. Denies fever, vomiting, dysuria, vaginal bleeding, hematuria, or hematochezia. Related Data Home Medications Medication Instructions Recorded Confirmed Classic 28 tablet PO DAILY 02/10/21 04/06/21 pantoprazole 40 mg PO DAILY 04/06/21 04/06/21 Allergies Allergy/AdvReac Type Severity Reaction Status Date / Time No Known Allergies Allergy Verified 04/08/21 03:32 Review of Systems Review of Systems: CONSTITUTIONAL: Denies fever GASTROINTESTINAL: Reports abdominal pain, nausea. Denies vomiting GENITOURINARY: Denies dysuria or hematuria. All systems reviewed & are unremarkable except as noted in HPI and below PMFSH Past Medical History Medical History Anxiety Kidney stone Ovarian cyst Surgical History Surgical History History of tonsillectomy [place] teeth removed Social History Social History Smoking status: Never smoker Second hand tobacco smoke exposure: Yes Alcohol intake: never Substance use: never Substance use type: does not use Gender identity (if verbalized by the patient): Female Spiritual care concerns: No Exam Narrative: GENERAL: Well-appearing, well-nourished, and in no acute distress. HEAD: Normocephalic, atraumatic. EYES: EOMI. CHEST: Clear to auscultation. No respiratory distress. No wheezes rales or rhonchi HEART: Regular rate and rhythm. No murmur heard. Normal peripheral pulses. ABDOMEN: Gravid, nontender, nondistended, normal active bowel sounds. No CVA tenderness EXTREMITIES: Normal range of motion. No edema. SKIN: Warm, dry, no rash. NEURO: No focal deficits. Alert and oriented x3. PSYCH: Normal mood and affect Course Consultations Consultation #1: Spoke with Dr. Jin about patient and work-up, patient's OB. Patient is to follow-up in clinic at her scheduled appointment in two days. Date: 05/11/21 Time: 14:00 Vital Signs Vital signs: Vital Signs Temperature 97.3 F L 05/11/21 10:14 Pulse Rate 100 05/11/21 10:14 Respiratory Rate 18 05/11/21 10:14 Blood Pressure 124/76 05/11/21 10:14 Pulse Oximetry 100 05/11/21 10:14 Temperature 97.3 F L 05/11/21 10:14 Pulse Rate 100 05/11/21 10:14 Respiratory Rate 18 05/11/21 10:14 Blood Pressure 124/76 05/11/21 10:14 Pulse Oximetry 100 05/11/21 10:14 MDM - Abdominal Pain MDM Narrative Medical decision making narrative: Patient presents to the ER for left flank pain present since this morning. She is afebrile and nontoxic-appearing. Vitals are stable. CBC with mild leukocytosis to 11.4. Metabolic panel with mild hypokalemia. Patient given dose of potassium in the ED. lipase is normal. UA with 31-50 white blood cells and 2+ leuk esterase, also many squamous epithelial cells. This will be sent for culture. Obstetrics ultrasound shows a single living fetus with heart rate of 154. Renal ultrasound is normal. Patient was updated on case findings. Hydrated and given pain medication and antiemetic with improvement. Spoke with Dr. Jin about patient and work-up, patient's OB. Patient is to follow-up in clinic at her scheduled appointment in two days. Patient is stable and felt appropriate for further outpatient evaluation. She was given warnings to return to
[2021-05-11] MEDS: SODIUM CHLORIDE 0.9% IV 1,000 ML 999 ML IV CONT (11:51)
[2021-05-11] MEDS: diphenhydrAMINE HCl INJ 50 MG/ML VIAL 25 MG IV PUSH (11:51)
[2021-05-11] MEDS: METOCLOPRAMIDE HCL INJ 10 MG/2 ML VIAL IV PUSH (11:51)
[2021-05-11] MEDS: POTASSIUM CHLORIDE 20 MEQ PACKET (FOR LIQUID) 40 MEQ PO (14:15)
[2021-05-11 14:37] VITALS: BP 122/72; PULSE 78; RESP 18; O2SAT 99
== END 2021-05-11 14:39 | disposition home or self-care (01) ==
PROVIDERS: Emergency Provider Emergency Medicine
DX: O26.892 Other specified pregnancy related conditions, second trimester (principal); R10.9 Unspecified abdominal pain; O99.282 Endocrine, nutritional and metabolic diseases complicating pregnancy, second trimester; E87.6 Hypokalemia; Z87.442 Personal history of urinary calculi; Z3A.18 18 weeks gestation of pregnancy
CPT/HCPCS: 36415; 76775; 76816; 80053; 81001; 81025; 83690; 85025; 87086; 96365; 96375; 99284; A9270; J0131; J1200; J2765; J7030

== ENCOUNTER 2021-05-11 21:11 | Emergency (ER) | payer OTHER, SELFPAY ==
[2021-05-11 21:21] VITALS: BP 115/57; PULSE 112; RESP 18; TEMP 36.2; O2SAT 100
--- NOTE | 2021-05-11 21:47 | PC.NURSE ---
Pt exits ED prior to seeing provider. No sign of any kind of distress at this time.
== END 2021-05-12 04:47 | disposition left against medical advice (07) ==
LOC: ANHED 22:02
DX: R10.9 Unspecified abdominal pain (principal)
CPT/HCPCS: 99199

== ENCOUNTER 2021-05-22 15:16 | Outpatient (CLI) | payer OTHER, SELFPAY ==
--- NOTE | ~2021-05-22 | US_ITS ---
EXAMINATION: US OB follow up DATE: 05/22/2021 15:55 INDICATION: Encounter for supervision of normal during second trimester . TECHNIQUE: Real-time ultrasound of the pelvis was performed. The interpreting radiologist was not pre sent for the study. COMPARISON: None. FINDINGS: There is a single living fetus in vertex presentation. The placenta is posterior and not low-lying w ith caudal margin 4.0 cm from the internal cervical os. heart rate is 144 beats per minute (bpm ). The amniotic fluid volume is subjectively normal. The following biometric data were obtained: BPD: 4.4 cm -> 19 weeks 2 days Head circumference: 16.8 cm -> 19 weeks 3 days Abdominal circumference: 14.6 cm -> 19 weeks 6 days Femur length: 2.8 cm -> 18 weeks 5 days These measurements are concordant. Head circumference to abdominal circumference ratio: 1.15 (normal range 1.09-1.26). Estimated weight: 286 g (+/-) 43 g or 10 oz. (+/-) 2 oz. IMPRESSION: 1. Single living fetus in vertex presentation with heart rate of 144 bpm. 2. Estimated weight is 48th percentile by Hadlock criteria when 10/14/2021 is used as the estimat ed date of delivery (JOHNNY). Please correlate with clinical information or earlier ultrasounds for most accurate JOHNNY. Reviewed, dictated and finalized at location A. E OPENER IMPRESSION: 1. Single living fetus in vertex presentation with heart rate of 144 bpm. 2. Estimated weight is 48th percentile by Hadlock criteria when 10/14/2021 is used as the estimated date of delivery (JOHNNY). Please correlate with clinical information or earlier ultrasounds for most accurate JOHNNY.
== END 2021-05-22 15:17 | disposition home or self-care (01) ==
LOC: ANHIMG 15:17
PROVIDERS: Visit Provider Obstetrics & Gynecology
DX: Z34.92 Encounter for supervision of normal pregnancy, unspecified, second trimester (principal); Z3A.19 19 weeks gestation of pregnancy
CPT/HCPCS: 76816

== ENCOUNTER 2021-06-02 12:25 | Outpatient (CLI) | payer OTHER, SELFPAY ==
--- NOTE | 2021-06-02 12:55 | PC.NURSE ---
1250- FHT doppled at 155
[2021-06-02 13:12] VITALS: BP 104/64; PULSE 87; PULSE 91; O2SAT 100
--- NOTE | 2021-06-02 13:13 | PC.NURSE ---
1310- SPoke with Dr. Curtis, ROm plus negative. Orders to discharge to home with follow up at patient doctor tomorrow.
== END 2021-06-02 13:15 | disposition home or self-care (01) ==
LOC: ANHOBOP 12:28 → ANHOBPP 12:29
PROVIDERS: Visit Provider Obstetrics & Gynecology
DX: O42.90 Premature rupture of membranes, unspecified as to length of time between rupture and onset of labor, unspecified weeks of gestation (principal); Z3A.00 Weeks of gestation of pregnancy not specified
CPT/HCPCS: 84112; 99199

== ENCOUNTER 2021-08-25 22:58 | Observation (INO) | payer OTHER, SELFPAY ==
[2021-08-25 23:19] VITALS: BP 114/81; PULSE 106
[2021-08-25 23:20] VITALS: BMI 25.9
--- NOTE | 2021-08-25 23:21 | OBADM ---
This patient, Ginger Chaidez, admitted to the OB room OB Post 116 for observation. Patient/family oriented to hospital policies and general routines including ID bracelet, bed and alarms, visiting hours, pain management, procedures, bathroom and other care routines, personal items, smoking policy, room service/diet, and visiting hours. Patient/Family are encouraged to report perceived risks to care and to ask questions if they do not understand what they are told or what they should do.
--- NOTE | 2021-08-25 23:25 | PC.NURSE ---
Pt presents to L&D with complaints of abdominal and back pain. 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 She stated the person did not fall on her, she did not try to stop the fall, and she did not help the patient up. She states as she was attempting to help the patient up she might have pulled something in her back. States she hasn't felt the baby move but that she never feels baby move unless she is laying down. States she does not have any vaginal bleeding. States she is not feeling any cramping now or any pain other than a dull ache in her back. Patient states she is a patient of [facility].
--- NOTE | 2021-08-26 01:05 | PC.NURSE ---
pt states she is not feeling contractions. States she had a kidney stone yesterday and this may be UTI related, states she is already on antibiotics for UTI but not sure the name of the medication. Rimma notified, instructed to send patient home.
--- NOTE | 2021-09-07 21:12 | PM.OBTRLD ---
OB - Triage/Final Diagnosis Visit Information Comments/Additional reasons for admission: I have assessed the risk for this patient, Ginger Chaidez, and determined that she would benefit from observation care. Final Diagnosis (1) Right flank pain: Code(s): R10.9 - Unspecified abdominal pain Status: Acute (2) Abdominal pain affecting : Code(s): O26.899 - Other specified related conditions, unspecified trimester; R10.9 - Unspecified abdominal pain Status: Acute
== END 2021-08-26 01:23 | disposition home or self-care (01) ==
PROVIDERS: Admitting Provider Obstetrics & Gynecology; Visit Provider Obstetrics & Gynecology
DX: O26.893 Other specified pregnancy related conditions, third trimester (principal); R10.9 Unspecified abdominal pain; Z3A.33 33 weeks gestation of pregnancy
CPT/HCPCS: G0378; G0379

== ENCOUNTER 2021-10-03 22:53 | Emergency (ER) | payer OTHER, SELFPAY ==
--- NOTE | ~2021-10-03 | XR_ITS ---
XR chest 2V DATE: 10/04/2021 01:30 INDICATION: Palpitations TECHNIQUE: PA and lateral views COMPARISON: None FINDINGS: Normal heart size. No hilar or mediastinal enlargement. No pulmonary infiltrate or consolid ation, pleural effusion or pulmonary vascular congestion or pneumothorax. Included skeletal structure s are unremarkable. IMPRESSION: Negative Reviewed, dictated and finalized at location A. IMPRESSION: Negative
[2021-10-03 23:10] VITALS: BP 143/94; PULSE 99; RESP 16; TEMP 36.4; O2SAT 99
--- NOTE | 2021-10-03 23:15 | ECG_ITS ---
Measurements Intervals [place] Rate: 80 P: 67 [place]: 143 QRS: 73 QRSD: 89 T: 57 QT: 363 QTc: 421 Interpretive Statements SINUS RHYTHM WITH SINUS ARRHYTHMIA NORMAL ECG Electronically Signed On 10-04-2021 7:12:39 CDT by Kanu Morales D.O.
--- NOTE | 2021-10-03 23:31 | PC.NURSE ---
This RN spoke with Isabella in OB. States pt can be seen in ED and OB will come to evaluate pts bleeding.
[2021-10-03 23:35] LABS: Basophils Percent Auto 0.4 % (0.2-1.2); Eosinophils Absolute Auto 0.3 K/mm3 (0-0.3); Eosinophils Percent Auto 2.8 % (0-4.4); Hematocrit 38.3 % (37.0-47.0); Hemoglobin 12.3 g/dL (12.0-15.0); Immature Granulocyte Absolute 0.02 K/mm3 (0.00-0.031); Immature Granulocyte Percent A 0.2 % (0-0.5); Lymphocytes Absolute Auto 2.85 K/mm3 (0.9-3.2); Mean Corpuscular HGB Conc 32.1 g/dl (32-36); Mean Corpuscular Hemoglobin 32.2 pg (26-34); Mean Corpuscular Volume 100.3 fl (80-100); Mean Platelet Volume 12.2 fl (7.4-10.4); Monocytes Absolute Auto 0.9 K/mm3 (0.1-0.6); Monocytes Percent Auto 7.5 % (2.6-8.5); Neutrophils Absolute Auto 7.3 K/mm3 (1.3-6.7); Neutrophils Percent Auto 64.1 % (45.5-73.1); Platelet Count Result 180 k/mm3 (150-375); Red Blood Count 3.82 M/mm3 (4.2-5.4); Red Cell Distribution Width 14.6 % (11.5-14.5); White Blood Count 11.4 K/mm3 (4.5-10.0)
[2021-10-03 23:41] LABS: Alanine Aminotransferase 27 U/L (6-35); Albumin Level 3.3 g/dL (3.5-5.1); Alkaline Phosphatase 135 U/L (38-126); Anion Gap 2 mmol/L (8-16); Aspartate Amino Transferase 72 U/L (14-36); Bilirubin,Total 0.2 mg/dL (0.2-1.3); Blood Urea Nitrogen 9 mg/dL (7-17); Calcium 8.9 mg/dL (8.4-10.2); Carbon Dioxide 25 mmol/L (22-30); Chloride 108 mmol/L (98-107); Estimated CRCL calculation 133 ml/min; Estimated Glomerular Filt Rate > 60; Glucose 84 mg/dL (65-110); Sodium 135 mmol/L (137-145)
--- NOTE | 2021-10-04 01:13 | PC.NURSE ---
OB nurse to ED and evaluated pt's vaginal bleeding.
[2021-10-04 01:51] VITALS: BP 141/95; PULSE 91; RESP 15; O2SAT 99
[2021-10-04] MEDS: SODIUM CHLORIDE 0.9% IV 500 ML 999 ML IV CONT (01:51)
--- NOTE | 2021-10-04 02:04 | ED.GENADULT ---
HPI - General Adult General Chief complaint: Unspecified Stated complaint: Palpitations Time Seen by Provider: 10/04/21 00:56 History of Present Illness HPI narrative: Patient presents with palpitations and vaginal bleeding. She is 3 days. Source of is having increasing bleeding and pelvic pain she was concerned there was an issue with the delivery so she came to the ER for further evaluation. Patient also reports palpitations and slight wheezing over this time period. Denies any fevers chills cough congestion shortness of breath or lightheadedness. Denies any chest pain. Reports she has soaked multiple pads this evening. Related Data Home Medications Medication Instructions Recorded Confirmed vits no.126-ferrous fum 28 tablet PO DAILY 02/10/21 08/25/21 28 mg iron-folic acid 800 mcg tablet (Classic ) pantoprazole 40 mg tablet,delayed 40 mg PO DAILY 04/06/21 08/25/21 release Allergies Allergy/AdvReac Type Severity Reaction Status Date / Time No Known Allergies Allergy Verified 04/08/21 03:32 Review of Systems Review of Systems: CONSTITUTIONAL: Denies fever, chills, or sweats. EYES: Denies visual changes, redness, or discharge. ENT: Denies rhinorrhea, congestion, sore throat, or otalgia. CARDIOVASCULAR: Denies chest pain, or edema. RESPIRATORY: Denies cough or dyspnea. GASTROINTESTINAL: Denies abdominal pain, nausea, vomiting, or diarrhea. GENITOURINARY: Denies dysuria or hematuria. SKIN: Denies rash or itching. MUSCULOSKELETAL: Denies back pain, joint pain, or myalgia. NEUROLOGIC: Denies headache, numbness, dizziness, or weakness. PSYCHIATRIC: Denies anxiety or depression. All systems reviewed & are unremarkable except as noted in HPI and below [facility] Past Medical History Medical History Anxiety Kidney stone Ovarian cyst Surgical History Surgical History History of tonsillectomy [place] teeth removed Social History Social History Smoking status: Never smoker Second hand tobacco smoke exposure: Yes Alcohol intake: never Substance use: never Substance use type: does not use Gender identity (if verbalized by the patient): Female Spiritual care concerns: No Exam Narrative: GENERAL: Well-appearing, well-nourished, and in no acute distress. HEAD: Normocephalic, atraumatic. EYES: PERRLA and EOMI. ENT: Nares clear, no rhinorrhea or epistaxis. Mucous membranes moist. NECK: Supple. No masses. No JVD CHEST: Clear to auscultation. No respiratory distress. Minimal end expiratory wheezing noted at the left lung base HEART: Regular rate and rhythm. No murmur heard. Normal peripheral pulses. ABDOMEN: Soft, nontender, nondistended, normal active bowel sounds. EXTREMITIES: Normal range of motion. No edema. SKIN: Warm, dry, no rash. NEURO: No focal deficits. Alert and oriented x3. PSYCH: Normal mood and affect. Course Reevaluation(s) Reevaluation #1: Patient reports feeling improved and is reassured by today's exam. Patient was evaluated by OB nurse and had no additional concerns regarding vaginal bleeding or stitches. Results and imaging reviewed with patient given reassuring work-up and exam patient is appropriate for continued outpatient monitoring and follow-up with her OB. Patient is comfortable outpatient plan. Date: 10/04/21 Time: 02:05 Vital Signs Vital signs: Vital Signs Temperature 36.4 C 10/03/21 23:10 Pulse Rate 99 10/03/21 23:10 Respiratory Rate 16 10/03/21 23:10 Blood Pressure 143/94 H 10/03/21 23:10 Pulse Oximetry 99 10/03/21 23:10 Oxygen Delivery Room Air 10/03/21 23:10 Temperature 36.4 C 10/03/21 23:10 Pulse Rate 94 10/04/21 02:58 Respiratory Rate 16 10/04/21 02:58 Blood Pressure 156/95 H 10/04/21 02:58 Pulse Oximetry 98 10/04/21 02:58
[2021-10-04 02:58] VITALS: BP 156/95; PULSE 94; RESP 16; O2SAT 98
== END 2021-10-04 03:00 | disposition home or self-care (01) ==
PROVIDERS: Emergency Provider Emergency Medicine
DX: O72.2 Delayed and secondary postpartum hemorrhage (principal); O90.89 Other complications of the puerperium, not elsewhere classified; R00.2 Palpitations
CPT/HCPCS: 36415; 71046; 80053; 85025; 93005; 96360; 99283; J7040

== ENCOUNTER 2021-12-30 15:23 | Emergency (ER) | payer OTHER, SELFPAY ==
[2021-12-30] VITALS (13 sets, daily range): BP systolic 100–122; BP diastolic 56–79; PULSE 64–80; RESP 14–16; TEMP 36.3–36.8; O2SAT 98–100
--- NOTE | ~2021-12-30 | CT_ITS ---
EXAMINATION: CT abdomen pelvis w con DATE: 12/30/2021 18:41 INDICATION: right upper abdominal pain, right flank pain TECHNIQUE: Computed tomography (CT) of the abdomen and pelvis was performed with 100 mL Omnipaque-350 intravenous contrast. Automated exposure control and iterative reconstruction technique were employe d. The dose-length product was 303.41 mGy-cm. COMPARISON: 10/26/2020. FINDINGS: Lower thorax: Unremarkable Liver: The liver is enlarged. Mild periportal edema. Trace perihepatic fluid. Biliary/Gallbladder: Gallbladder is normal. No bile duct dilation. Pancreas: No mass or duct dilation. Spleen: Normal. Adrenals:No mass. Kidneys: Nonobstructive right upper and mid pole calculi. No suspicious mass or hydronephrosis. GI tract: Distal esophageal and gastric wall edema. No small or large bowel dilation. Normal appendix . Mesentery/Peritoneum: No ascites, mass, or free air. Retroperitoneum: No mass. Pelvis: Pelvic organs are within normal limits. Soft Tissues: Soft tissues and body wall unremarkable. Bones: No acute osseous finding. IMPRESSION: Hepatomegaly, with periportal edema and trace perihepatic fluid as can be seen with hepatitis in the appropriate clinical and laboratory context. Mild esophagitis/gastritis. Reviewed, dictated and finalized at location K. IMPRESSION: Hepatomegaly, with periportal edema and trace perihepatic fluid as can be seen with hepatitis in the appropriate clinical and laboratory context. Mild esophag itis/gastritis.
[2021-12-30 16:22] LABS: Basophils Percent Auto 0.2 % (0.2-1.2); Eosinophils Absolute Auto 0.1 K/mm3 (0-0.3); Eosinophils Percent Auto 2.4 % (0-4.4); Hemoglobin 12.6 g/dL (12.0-15.0); Immature Granulocyte Absolute 0.01 K/mm3 (0.00-0.031); Immature Granulocyte Percent A 0.2 % (0-0.5); Lymphocytes Absolute Auto 2.53 K/mm3 (0.9-3.2); Lymphocytes Percent Auto 43.5 % (18.3-44.2); Mean Corpuscular HGB Conc 33.2 g/dl (32-36); Mean Corpuscular Hemoglobin 32.1 pg (26-34); Mean Corpuscular Volume 96.9 fl (80-100); Mean Platelet Volume 11.4 fl (7.4-10.4); Monocytes Absolute Auto 0.6 K/mm3 (0.1-0.6); Monocytes Percent Auto 9.5 % (2.6-8.5); Neutrophils Absolute Auto 2.6 K/mm3 (1.3-6.7); Neutrophils Percent Auto 44.2 % (45.5-73.1); Platelet Count Result 210 k/mm3 (150-375); Red Blood Count 3.92 M/mm3 (4.2-5.4); Red Cell Distribution Width 11.9 % (11.5-14.5); White Blood Count 5.8 K/mm3 (4.5-10.0)
[2021-12-30 16:28] LABS: Appearance Urine Clear (Clear); Bilirubin Urine Negative (Negative); Blood Urine Negative (Negative); Color Urine Yellow (Yellow); Glucose Urine UA Negative (Negative); Ketones Urine Negative (Negative); Leukocyte Esterase Ur Negative LEU/UL (Negative); Nitrate Urine Negative (Negative); Protein Urine Negative (Negative); Specific Grav Ur 1.025 (1.001-1.035); Urobilinogen Urine 0.2 mg/dL (<2.0)
[2021-12-30 16:37] LABS: Alanine Aminotransferase 34 U/L (6-35); Albumin Level 4.4 g/dL (3.5-5.1); Alkaline Phosphatase 68 U/L (38-126); Anion Gap 9 mmol/L (8-16); Aspartate Amino Transferase 24 U/L (14-36); Bilirubin,Total 0.3 mg/dL (0.2-1.3); Blood Urea Nitrogen 14 mg/dL (7-17); Calcium 9.1 mg/dL (8.4-10.2); Carbon Dioxide 24 mmol/L (22-30); Chloride 104 mmol/L (98-107); Estimated CRCL calculation 91 ml/min; Estimated Glomerular Filt Rate > 60; Glucose 88 mg/dL (65-110); Lipase 125 U/L (23-300); Potassium 3.8 mmol/L (3.4-5.0); Sodium 137 mmol/L (137-145)
[2021-12-30 16:41] LABS: Mucus Urine Rare /lpf; RBC Urine 0-2 /hpf (0-2); Squamous Epithelial Cell Urine Moderate /hpf (Few); WBC Urine 0-3 /hpf
[2021-12-30 16:43] LABS: Add Urine Microscopic? NO
[2021-12-30] MEDS: SODIUM CHLORIDE 0.9% IV 1,000 ML 999 ML IV CONT (18:10)
[2021-12-30] MEDS: ONDANSETRON INJ 4 MG/2 ML VIAL IV PUSH (18:11)
--- NOTE | 2021-12-30 18:13 | ED.ABDPAIN ---
HPI - Abdominal Pain General Chief Complaint: Abdominal Pain Stated Complaint: right sided flank pain Time Seen by Provider: 12/30/21 17:17 Source: patient Mode of arrival: ambulatory Limitations: no limitations History of Present Illness HPI narrative: 21-year-old female presents today with 3 to 4 days of right flank pain and right upper abdominal pain. Patient states the pain is steady currently rating it at about a 7. Patient states the pain is progressively gotten worse over the last few days. Patient does have a history of kidney stones but states this does not feel the same. Patient denies urinary complaints such as dysuria, hematuria, or urinary frequency. Patient denies fevers, does endorse nausea but no vomiting. Patient denies any aggravating factors. Related Data Home Medications Medication Instructions Recorded Confirmed vits no.126-ferrous fum 28 tablet PO DAILY 02/10/21 08/25/21 28 mg iron-folic acid 800 mcg tablet (Classic ) pantoprazole 40 mg tablet,delayed 40 mg PO DAILY 04/06/21 08/25/21 release Allergies Allergy/AdvReac Type Severity Reaction Status Date / Time No Known Allergies Allergy Verified 04/08/21 03:32 Review of Systems Review of Systems: CONSTITUTIONAL: Denies fever, chills, or sweats. EYES: Denies visual changes, redness, or discharge. ENT: Denies rhinorrhea, congestion, sore throat, or otalgia. CARDIOVASCULAR: Denies chest pain, palpitations, or edema. RESPIRATORY: Denies cough or dyspnea. GASTROINTESTINAL: Right-sided abdominal pain with nausea Denies vomiting, or diarrhea. GENITOURINARY: Denies dysuria or hematuria. SKIN: Denies rash or itching. MUSCULOSKELETAL: Right flank pain. Denies joint pain, or myalgia. NEUROLOGIC: Denies headache, numbness, dizziness, or weakness. PSYCHIATRIC: Denies anxiety or depression. [facility] Past Medical History Medical History Anxiety Kidney stone Ovarian cyst Surgical History Surgical History History of tonsillectomy [place] teeth removed Social History Social History Smoking status: Never smoker Second hand tobacco smoke exposure: Yes Alcohol intake: never Substance use: never Substance use type: does not use Gender identity (if verbalized by the patient): Female Spiritual care concerns: No Exam Narrative: GENERAL: Well-appearing, well-nourished, and in no acute distress. HEAD: Normocephalic, atraumatic. EYES: PERRLA and EOMI. NECK: Supple. No adenopathy or masses. No carotid bruits or JVD CHEST: Clear to auscultation. No respiratory distress. No wheezes rales or rhonchi HEART: Regular rate and rhythm. No murmur heard. Normal peripheral pulses. ABDOMEN: Right upper quadrant tenderness. Soft, nondistended, normal active bowel sounds. Negative CVA tenderness. EXTREMITIES: Normal range of motion. No edema. SKIN: Warm, dry, no rash. NEURO: No focal deficits. Alert and oriented x3. PSYCH: Normal mood and affect. Course Course Emergency Course: Reviewed results with patient. Patient aware of hepatomegaly on CT. Patient to be sent home with [facility] and plan follow-up with GI/primary. Vital Signs Vital signs: Vital Signs Temperature 36.7 C 12/30/21 15:24 Pulse Rate 69 12/30/21 15:24 Respiratory Rate 14 12/30/21 15:24 Blood Pressure 105/62 12/30/21 15:24 Pulse Oximetry 100 12/30/21 15:24 Temperature 36.3 C L 12/30/21 19:05 Pulse Rate 78 12/30/21 20:23 Respiratory Rate 16 12/30/21 20:23 Blood Pressure 108/60 12/30/21 20:23 Pulse Oximetry 98 12/30/21 20:23 MDM - Abdominal Pain MDM Narrative Medical decision making narrative: 21-year-old female HPI as noted. Differentials as out. CT ordered to rule out cholecystitis, pancreatitis. CT shows hepatomegaly. Liver enzymes within n
[2021-12-30] MEDS: PANTOPRAZOLE SODIUM IV 40 MG VIAL IV PUSH (20:11)
[2021-12-30] MEDS: KETOROLAC 15 MG/ML VIAL (*BKC) IV PUSH (20:11)
== END 2021-12-30 20:25 | disposition home or self-care (01) ==
PROVIDERS: Emergency Medicine; Emergency Provider Nurse Practitioner Family
DX: R10.11 Right upper quadrant pain (principal); Z87.442 Personal history of urinary calculi; R16.0 Hepatomegaly, not elsewhere classified; K20.90 Esophagitis, unspecified without bleeding; K29.70 Gastritis, unspecified, without bleeding
CPT/HCPCS: 36415; 74177; 80053; 81003; 81025; 83690; 85025; 96361; 96374; 96375; 99284; C9113; J1885; J2405; J7030; Q9967

== ENCOUNTER 2022-01-04 16:25 | Emergency (ER) | payer OTHER, SELFPAY ==
[2022-01-04 16:31] VITALS: BP 109/56; PULSE 93; RESP 16; TEMP 36.5; O2SAT 100
[2022-01-04 18:45] LABS: Basophils Percent Auto 0.3 % (0.2-1.2); Eosinophils Absolute Auto 0.1 K/mm3 (0-0.3); Eosinophils Percent Auto 1.9 % (0-4.4); Hematocrit 40.5 % (37.0-47.0); Hemoglobin 13.5 g/dL (12.0-15.0); Immature Granulocyte Absolute 0.01 K/mm3 (0.00-0.031); Immature Granulocyte Percent A 0.2 % (0-0.5); Lymphocytes Absolute Auto 2.58 K/mm3 (0.9-3.2); Mean Corpuscular HGB Conc 33.3 g/dl (32-36); Mean Corpuscular Hemoglobin 31.8 pg (26-34); Mean Corpuscular Volume 95.5 fl (80-100); Mean Platelet Volume 11.4 fl (7.4-10.4); Monocytes Absolute Auto 0.5 K/mm3 (0.1-0.6); Monocytes Percent Auto 7.8 % (2.6-8.5); Neutrophils Absolute Auto 3.2 K/mm3 (1.3-6.7); Neutrophils Percent Auto 49.8 % (45.5-73.1); Platelet Count Result 242 k/mm3 (150-375); Red Blood Count 4.24 M/mm3 (4.2-5.4); Red Cell Distribution Width 12.1 % (11.5-14.5); White Blood Count 6.5 K/mm3 (4.5-10.0)
[2022-01-04 18:57] LABS: Alanine Aminotransferase 38 U/L (6-35); Albumin Level 4.9 g/dL (3.5-5.1); Alkaline Phosphatase 71 U/L (38-126); Anion Gap 6 mmol/L (8-16); Aspartate Amino Transferase 28 U/L (14-36); Bilirubin,Total 0.3 mg/dL (0.2-1.3); Blood Urea Nitrogen 13 mg/dL (7-17); Calcium 9.7 mg/dL (8.4-10.2); Carbon Dioxide 26 mmol/L (22-30); Chloride 103 mmol/L (98-107); Estimated CRCL calculation 103 ml/min; Estimated Glomerular Filt Rate > 60; Glucose 76 mg/dL (65-110); Potassium 3.7 mmol/L (3.4-5.0); Sodium 135 mmol/L (137-145)
[2022-01-04 18:58] LABS: Ethanol < 10 mg/dL (<10)
[2022-01-04 19:05] LABS: Appearance Urine Clear (Clear); Bilirubin Urine Negative (Negative); Blood Urine Negative (Negative); Color Urine Yellow (Yellow); Glucose Urine UA Negative (Negative); Ketones Urine Negative (Negative); Leukocyte Esterase Ur Trace LEU/UL (Negative); Nitrate Urine Negative (Negative); Protein Urine Negative (Negative); Specific Grav Ur >= 1.030 (1.001-1.035); Urobilinogen Urine 0.2 mg/dL (<2.0); pH Urine 5.5 (5.0-9.0)
[2022-01-04 19:08] LABS: Bacteria Urine 1+ /hpf; Mucus Urine Few /lpf; Squamous Epithelial Cell Urine Many /hpf (Few); WBC Urine 21-30 /hpf
[2022-01-04 19:11] LABS: Add Urine Microscopic? YES
[2022-01-04 19:35] LABS: Amphetamine Screen Urine Negative (Negative); Barbiturate Screen Urine Negative (Negative); Benzodiazepines Screen Urine Negative (Negative); Cannabinoid Screen Urine Negative (Negative); Cocaine Screen Urine Negative (Negative); Methadone Screen Urine Negative (Negative); Opiate Screen Urine Negative (Negative); Phencyclidine Screen Urine Negative (Negative)
--- NOTE | 2022-01-04 19:36 | ED.GENADULT ---
HPI - General Adult General Chief complaint: Psychiatric Symptoms Stated complaint: mood swings Time Seen by Provider: 01/04/22 19:15 History of Present Illness HPI narrative: Patient is a 21-year-old female that presents the emergency department with chief complaint of depression. Patient reports that she had a vaginal delivery approximately 3 months ago and has been having more depression and is having anxiety. The patient reports she has had some intermittent thoughts of harming herself but does not have an active plan reports that she is currently not suicidal at this time. The patient states she is attempted to get into a counselor but they have a multiple month wait and decided to come to the emergency department to try to get help. Related Data Home Medications Medication Instructions Recorded Confirmed vits no.126-ferrous fum 28 tablet PO DAILY 02/10/21 08/25/21 28 mg iron-folic acid 800 mcg tablet (Classic ) pantoprazole 40 mg tablet,delayed 40 mg PO DAILY 04/06/21 08/25/21 release Allergies Allergy/AdvReac Type Severity Reaction Status Date / Time No Known Allergies Allergy Verified 04/08/21 03:32 Review of Systems Review of Systems: A 10 system review of systems was completed on the patient and is negative except for what is stated in the HPI. Nursing and ancillary documentation was reviewed. [facility] Past Medical History Medical History Anxiety Kidney stone Ovarian cyst Surgical History Surgical History History of tonsillectomy [place] teeth removed Social History Social History Smoking status: Never smoker Second hand tobacco smoke exposure: Yes Alcohol intake: never Substance use: never Substance use type: does not use Gender identity (if verbalized by the patient): Female Spiritual care concerns: No Exam Narrative: GENERAL: Well-appearing, well-nourished, and in no acute distress. HEAD: Normocephalic, atraumatic. EYES: PERRLA and EOMI. ENT: Nares clear, no rhinorrhea or epistaxis. Mucous membranes moist. NECK: Supple. CHEST: Clear to auscultation. No respiratory distress. HEART: Regular rate and rhythm. No murmur heard. Normal peripheral pulses. ABDOMEN: Soft, nontender, nondistended, normal active bowel sounds. EXTREMITIES: Normal range of motion. No edema. SKIN: Warm, dry, no rash. NEURO: No focal deficits. Alert and oriented x3. PSYCH: Normal mood and affect. Course Course Emergency Course: Patient is medically cleared for psychiatric evaluation referral transport and admission Vital Signs Vital signs: Vital Signs Temperature 36.5 C 01/04/22 16:31 Pulse Rate 93 01/04/22 16:31 Respiratory Rate 16 01/04/22 16:31 Blood Pressure 109/56 L 01/04/22 16:31 Pulse Oximetry 100 01/04/22 16:31 Oxygen Delivery Room Air 01/04/22 16:31 Temperature 36.5 C 01/04/22 16:31 Pulse Rate 93 01/04/22 16:31 Respiratory Rate 16 01/04/22 16:31 Blood Pressure 109/56 L 01/04/22 16:31 Pulse Oximetry 100 01/04/22 16:31 Oxygen Delivery Room Air 01/04/22 16:31 Medical Decision Making Vital Signs Vital Signs: Vital Signs Temperature 36.5 C 01/04/22 16:31 Pulse Rate 93 01/04/22 16:31 Respiratory Rate 16 01/04/22 16:31 Blood Pressure 109/56 L 01/04/22 16:31 Pulse Oximetry 100 01/04/22 16:31 Oxygen Delivery Room Air 01/04/22 16:31 Temperature 36.5 C 01/04/22 16:31 Pulse Rate 93 01/04/22 16:31 Respiratory Rate 16 01/04/22 16:31 Blood Pressure 109/56 L 01/04/22 16:31 Pulse Oximetry 100 01/04/22 16:31 Oxygen Delivery Room Air 01/04/22 16:31 Lab Data Result diagrams: 01/04/22 18:34 01/04/22 18:34 Labs: Lab Results 01/04/22 01/04/22 01/04/22 Range/Unit
== END 2022-01-05 00:36 | disposition home or self-care (01) ==
PROVIDERS: Physician Assistant; Emergency Provider Emergency Medicine
DX: F32.9 Major depressive disorder, single episode, unspecified (principal); N39.0 Urinary tract infection, site not specified; F41.9 Anxiety disorder, unspecified; Z87.442 Personal history of urinary calculi
CPT/HCPCS: 36415; 80053; 80307; 81001; 81025; 84443; 85025; 87086; 87088; 99284

== ENCOUNTER 2022-03-07 16:26 | Emergency (ER) | payer OTHER, SELFPAY ==
[2022-03-07 16:38] VITALS: BP 90/79; PULSE 104; RESP 16; TEMP 36.6; O2SAT 100
--- NOTE | 2022-03-07 16:38 | ED.URI ---
HPI - URI/Sore Throat General Chief Complaint: Upper Respiratory Infection Stated Complaint: pain in both ears, itchy throat Time Seen by Provider: 03/07/22 16:38 Source: patient Mode of arrival: ambulatory Limitations: no limitations History of Present Illness HPI Narrative: 21 y/o female presented for c/o dry throat bilateral ear pressure for 4 days. Not taking anything for symptoms, does not like meds, just drinking water. Denies significant sinus congestion, cough or fever. Related Data Home Medications Medication Instructions Recorded Confirmed vits no.126-ferrous fum 28 tablet PO DAILY 02/10/21 08/25/21 28 mg iron-folic acid 800 mcg tablet (Classic ) pantoprazole 40 mg tablet,delayed 40 mg PO DAILY 04/06/21 08/25/21 release digoxin 125 mcg (0.125 mg) tablet 03/07/22 paroxetine HCl 10 mg tablet mg PO 03/07/22 Allergies Allergy/AdvReac Type Severity Reaction Status Date / Time No Known Allergies Allergy Verified 04/08/21 03:32 Review of Systems Review of Systems: CONSTITUTIONAL: Denies malaise, chills, or fever. EYES: Denies visual changes, redness, or discharge. ENT: Denies rhinorrhea, congestion, sinus pain. Reports ear pain CARDIOVASCULAR: Denies chest pain, palpitations, or edema. RESPIRATORY: Denies cough or dyspnea. GASTROINTESTINAL: Denies abdominal pain, nausea, vomiting, diarrhea SKIN: Denies rash All systems reviewed & are unremarkable except as noted in HPI and below PMFSH Past Medical History Medical History Anxiety Kidney stone Ovarian cyst Surgical History Surgical History History of tonsillectomy [place] teeth removed Social History Social History Smoking status: Never smoker Second hand tobacco smoke exposure: Yes Alcohol intake: never Substance use: never Substance use type: does not use Gender identity (if verbalized by the patient): Female Spiritual care concerns: No Comments At time of signature, agree with nursing past medical, surgical, social and family history. There is no relevant family history pertinent to the presenting complaint Exam Narrative: GENERAL: Well-appearing EYES: PERRLA, conjunctivae clear ENT: Nares clear. Mucous membranes moist. TM pearly freed with dull light reflex bilaterally, left with fluid levels; no tragal tenderness. Oropharynx not erythematous. Tonsils absent. no drooling, no hoarseness, no trismus, uvula midline. NECK: Supple. No lymphadenopathy CHEST: Clear to auscultation, breath sounds equal. HEART: Regular rate and rhythm. No murmur heard. Course Course Emergency Course: Patient is aware of diagnosis, understands and agrees to treatment plan. Anticipatory guidance given. Patient agrees to follow-up as directed and is aware of reasons to seek care at the emergency department. Portions of this record may have been created with voice recognition software Level of Care: Express Care Visit Vital Signs Vital signs: Vital Signs Temperature 97.9 F 03/07/22 16:38 Pulse Rate 104 H 03/07/22 16:38 Respiratory Rate 16 03/07/22 16:38 Blood Pressure 90/79 L 03/07/22 16:38 Pulse Oximetry 100 03/07/22 16:38 Temperature 97.9 F 03/07/22 16:38 Pulse Rate 104 H 03/07/22 16:38 Respiratory Rate 16 03/07/22 16:38 Blood Pressure 90/79 L 03/07/22 16:38 Pulse Oximetry 100 03/07/22 16:38 Reviewed MDM - URI/Sore Throat MDM Narrative Medical decision making narrative: Advised supportive measures and signs/symptoms to go to the ER. Pt is appropriate for outpt treatment and f/u. Differential Diagnosis Differential diagnosis: Likely upper respiratory infection, otitis media and viral infection Discharge Plan Discharge Clinical Impression: Acute serous otitis media Patient Disposition: Home, Self-Car
== END 2022-03-07 16:47 | disposition home or self-care (01) ==
PROVIDERS: Emergency Provider Nurse Practitioner Family
DX: H65.02 Acute serous otitis media, left ear (principal)
CPT/HCPCS: 99211; G0463

== ENCOUNTER 2022-05-04 16:16 | Emergency (ER) | payer OTHER, SELFPAY ==
--- NOTE | ~2022-05-04 | XR_ITS ---
EXAMINATION: XR chest 2V Exam Date/Time: 05/04/2022 16:50 MEDICAL TECHNOLOGIST MICROBIOLOGY HISTORY: fast HR, chest pressure HX ASTHMA Comparison: 10/04/2021. RESULT: Lines, tubes, and devices: None. Lungs and pleura: Clear. Cardiomediastinal silhouette: Stable. Other: No acute osseous or upper abdominal finding. IMPRESSION: No acute cardiopulmonary process. Reviewed, dictated and finalized at location K. CAL TECHNOLOGIST MICROBIOLOGY
--- NOTE | 2022-05-04 16:18 | ECG_ITS ---
Measurements Intervals [place] Rate: 105 P: 77 FL: 150 QRS: 87 QRSD: 94 T: 10 QT: 327 QTc: 433 Interpretive Statements SINUS TACHYCARDIA NONSPECIFIC T-WAVE ABNORMALITY BORDERLINE ECG COMPARED TO ECG 10/03/2021 23:23:46 HEART RATE HAS INCREASED T-WAVE ABNORMALITY NOW PRESENT Electronically Signed On 05-04-2022 18:08:25 [employer] by Wilton Prieto M.D.
[2022-05-04 16:33] VITALS: BP 122/69; PULSE 98; RESP 16; TEMP 36.2; O2SAT 99
[2022-05-04 16:48] LABS: Basophils Percent Auto 0.3 % (0.2-1.2); Eosinophils Absolute Auto 0.1 K/mm3 (0-0.3); Hematocrit 42.2 % (37.0-47.0); Hemoglobin 13.9 g/dL (12.0-15.0); Immature Granulocyte Absolute 0.02 K/mm3 (0.00-0.031); Immature Granulocyte Percent A 0.2 % (0-0.5); Lymphocytes Absolute Auto 2.02 K/mm3 (0.9-3.2); Lymphocytes Percent Auto 21.7 % (18.3-44.2); Mean Corpuscular HGB Conc 32.9 g/dl (32-36); Mean Corpuscular Hemoglobin 30.8 pg (26-34); Mean Corpuscular Volume 93.6 fl (80-100); Mean Platelet Volume 10.1 fl (7.4-10.4); Monocytes Absolute Auto 0.7 K/mm3 (0.1-0.6); Monocytes Percent Auto 7.7 % (2.6-8.5); Neutrophils Absolute Auto 6.4 K/mm3 (1.3-6.7); Neutrophils Percent Auto 69.1 % (45.5-73.1); Platelet Count Result 244 k/mm3 (150-375); Red Blood Count 4.51 M/mm3 (4.2-5.4); Red Cell Distribution Width 12.3 % (11.5-14.5); White Blood Count 9.3 K/mm3 (4.5-10.0)
[2022-05-04 16:58] LABS: Alanine Aminotransferase 19 U/L (6-35); Albumin Level 4.3 g/dL (3.5-5.1); Alkaline Phosphatase 84 U/L (38-126); Anion Gap 8 mmol/L (8-16); Aspartate Amino Transferase 23 U/L (14-36); Bilirubin,Total 0.7 mg/dL (0.2-1.3); Blood Urea Nitrogen 10 mg/dL (7-17); Calcium 9.1 mg/dL (8.4-10.2); Carbon Dioxide 27 mmol/L (22-30); Chloride 105 mmol/L (98-107); Estimated CRCL calculation 103 ml/min; Estimated Glomerular Filt Rate > 60; Glucose 84 mg/dL (65-110); Lipase 50 U/L (23-300); Potassium 3.5 mmol/L (3.4-5.0); Sodium 140 mmol/L (137-145)
[2022-05-04 17:02] LABS: INR 1.1; Prothrombin Time 13.7 Seconds (11.1-14.7)
[2022-05-04 17:03] LABS: Partial Thromboplastin Time 34.6 SECONDS (22.3-36.8)
[2022-05-04 17:10] LABS: Troponin I < 0.012 ng/mL (0.000-0.034)
[2022-05-04 18:18] VITALS: BP 112/67; PULSE 99; RESP 18; O2SAT 100
[2022-05-04 18:19] VITALS: PULSE 99
--- NOTE | 2022-05-04 19:16 | ED.GENADULT ---
HPI - General Adult General Chief complaint: Arrhythmia/Palpitations Stated complaint: elevated HR Time Seen by Provider: 05/04/22 18:23 History of Present Illness HPI narrative: 21-year-old female history of SVT on digoxin, asthma presented with palpitations. Per patient, she was at work today started feeling palpitation, looked at her watch and noted heart rates of 130s to 140s, this was associated with lightheadedness, so she decided to present to the ED for further evaluation. She denied chest pain, shortness of breath, fevers, chills, nausea, vomiting, abdominal pain, dysuria, diarrhea. She reports fiance with viral URI symptoms. Past medical history: SVT, asthma, anxiety Past surgical history: Tonsillectomy Medications: Digoxin, albuterol Allergies: No known drug allergies Social: Denied smoking, alcohol, recreational drugs Related Data Home Medications Medication Instructions Recorded Confirmed vits no.126-ferrous fum 28 tablet PO DAILY 02/10/21 08/25/21 28 mg iron-folic acid 800 mcg tablet (Classic ) pantoprazole 40 mg tablet,delayed 40 mg PO DAILY 04/06/21 08/25/21 release digoxin 125 mcg (0.125 mg) tablet 03/07/22 paroxetine HCl 10 mg tablet mg PO 03/07/22 Allergies Allergy/AdvReac Type Severity Reaction Status Date / Time No Known Allergies Allergy Verified 04/08/21 03:32 Review of Systems Review of Systems: See HPI [facility] Past Medical History Medical History Anxiety Kidney stone Ovarian cyst Surgical History Surgical History History of tonsillectomy [place] teeth removed Social History Social History Smoking status: Never smoker Second hand tobacco smoke exposure: Yes Alcohol intake: never Substance use: never Substance use type: does not use Gender identity (if verbalized by the patient): Female Spiritual care concerns: No Comments See HPI Exam Narrative: APPEARANCE: Alert, calm and cooperative, no acute distress, phonating, sitting comfortably during visit HEAD: atraumatic EYES: Pupils equal round an reactive to light, extra ocular movements intact, no conjunctival injection NOSE: Normal no drainage NECK: Supple, without meningismus RESPIRATORY: Lungs clear to auscultation bilaterally, no wheezes/rales/rhonchi, breathing comfortably CARDIOVASCULAR: Regular rate and rhythm, no visible jugular venous distension ABDOMINAL: Soft, nontender, nondistended, no guarding, no rebound/peritoneal signs, no costovertebral tenderness to palpation BACK: no midline tenderness to palpation, no step offs EXTREMITIES: No edema, palpable peripheral pulses, warm, well perfused, no tenderness to bilateral calves. NEURO: Alert, moving all extremities symmetrically SKIN:: Warm, dry. Normal color PSYCHIATRIC: Normal affect/mood Course Vital Signs Vital signs: Vital Signs Temperature 97.2 F L 05/04/22 16:33 Pulse Rate 98 05/04/22 16:33 Respiratory Rate 16 05/04/22 16:33 Blood Pressure 122/69 05/04/22 16:33 Pulse Oximetry 99 05/04/22 16:33 Oxygen Delivery Room Air 05/04/22 16:33 Temperature 97.2 F L 05/04/22 16:33 Pulse Rate 99 05/04/22 18:19 Respiratory Rate 18 05/04/22 18:18 Blood Pressure 112/67 05/04/22 18:18 Pulse Oximetry 100 05/04/22 18:18 Oxygen Delivery Room Air 05/04/22 16:33 Medical Decision Making [facility] Narrative Medical decision making narrative: Medical Decision Making 21-year-old female history of SVT on digoxin, albuterol presents with palpitations and lightheadedness, resolved by time of ED presentation. Denied chest pain, shortness of breath, fevers, chills, nausea, vomiting. Physical exam benign, breathing comfortably, without medical complaints, sitting comfortably in bed, vitals within normal limits. Impression: History and exam suggesti
== END 2022-05-04 19:44 | disposition home or self-care (01) ==
LOC: ANHED 19:20
PROVIDERS: Family Medicine; Emergency Provider Emergency Medicine
DX: R00.2 Palpitations (principal); F41.9 Anxiety disorder, unspecified; Z87.442 Personal history of urinary calculi
CPT/HCPCS: 36415; 71046; 80053; 83690; 84484; 85025; 85610; 85730; 93005; 99284

== ENCOUNTER 2022-05-20 18:43 | Emergency (ER) | payer OTHER, SELFPAY ==
[2022-05-20] VITALS (7 sets, daily range): BP systolic 105–110; BP diastolic 65; PULSE 85–103; RESP 16–18; TEMP 36.7; O2SAT 100
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
--- NOTE | 2022-05-20 18:57 | PC.NURSE ---
Jess FRYE notified of moderate risk on [place] scale for admission. Pt currently has no thoughts of suicide. Per Jess FRYE, pt does not need Suicide precautions or sitter.
--- NOTE | 2022-05-20 19:32 | ECG_ITS ---
Measurements Intervals [place] Rate: 90 P: 67 NE: 156 QRS: 74 QRSD: 99 T: 45 QT: 337 QTc: 414 Interpretive Statements SINUS RHYTHM WITH SINUS ARRHYTHMIA MINIMAL Q WAVES- INF/LAT LEADS BORDERLINE ECG COMPARED TO ECG 05/04/2022 16:41:55 SINUS RHYTHM NOW PRESENT SINUS ARRHYTHMIA NOW PRESENT Electronically Signed On 05-21-2022 6:49:10 STATION ENGINEER by Kanu Morales D.O.
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
[2022-05-20 19:58] LABS: Basophils Percent Auto 0.2 % (0.2-1.2); Eosinophils Percent Auto 0.1 % (0-4.4); Hematocrit 40.2 % (37.0-47.0); Hemoglobin 13.1 g/dL (12.0-15.0); Immature Granulocyte Absolute 0.06 K/mm3 (0.00-0.031); Immature Granulocyte Percent A 0.4 % (0-0.5); Lymphocytes Percent Auto 23.1 % (18.3-44.2); Mean Corpuscular HGB Conc 32.6 g/dl (32-36); Mean Corpuscular Hemoglobin 30.7 pg (26-34); Mean Corpuscular Volume 94.1 fl (80-100); Mean Platelet Volume 10.8 fl (7.4-10.4); Monocytes Absolute Auto 1.2 K/mm3 (0.1-0.6); Monocytes Percent Auto 9.2 % (2.6-8.5); Platelet Count Result 300 k/mm3 (150-375); Red Blood Count 4.27 M/mm3 (4.2-5.4); Red Cell Distribution Width 12.8 % (11.5-14.5); White Blood Count 13.4 K/mm3 (4.5-10.0)
[2022-05-20 20:09] LABS: Alanine Aminotransferase 18 U/L (6-35); Albumin Level 4.5 g/dL (3.5-5.1); Alkaline Phosphatase 81 U/L (38-126); Anion Gap 9 mmol/L (8-16); Aspartate Amino Transferase 18 U/L (14-36); Bilirubin,Total 0.4 mg/dL (0.2-1.3); Blood Urea Nitrogen 13 mg/dL (7-17); Calcium 9.2 mg/dL (8.4-10.2); Carbon Dioxide 25 mmol/L (22-30); Chloride 107 mmol/L (98-107); Estimated CRCL calculation 103 ml/min; Estimated Glomerular Filt Rate > 60; Glucose 90 mg/dL (65-110); INR 1.1; Partial Thromboplastin Time 27.6 SECONDS (22.3-36.8); Potassium 3.4 mmol/L (3.4-5.0); Sodium 141 mmol/L (137-145)
[2022-05-20 20:16] LABS: D Dimer 0.29 ug/mL (<0.48)
[2022-05-20 20:20] LABS: Troponin I < 0.012 ng/mL (0.000-0.034)
[2022-05-20 20:35] LABS: Digoxin < 0.4 ng/mL (0.8-2.0)
== END 2022-05-20 21:03 | disposition home or self-care (01) ==
PROVIDERS: Emergency Provider General Practice
DX: S93.402A Sprain of unspecified ligament of left ankle, initial encounter (principal); R07.2 Precordial pain; S60.811A Abrasion of right wrist, initial encounter; Z87.442 Personal history of urinary calculi; F41.9 Anxiety disorder, unspecified; R94.31 Abnormal electrocardiogram [ECG] [EKG]; Y04.8XXA Assault by other bodily force, initial encounter
CPT/HCPCS: 36415; 71046; 73610; 80053; 80162; 81025; 84484; 85025; 85380; 85610; 85730; 93005; 99284